=== PATIENT | female | born 1940 | race Caucasian/White ===

== ENCOUNTER 2021-09-19 13:43 | Emergency (ER) | payer OTHER, BC ==
--- OUTSIDE RECORDS SUMMARY | 2021-09-19 13:46 | XMS REPORT | Continuity of Care Document ---
:1940 Author Organization [facility] t Address [address] [place] [address] Care Team Providers Name Role Phone Ronen Dobbs MD Primary Care Physician RAYSHAWN Attending Clinician Unavailable LONI NICOLE Attending Clinician Unavailable RONEN DOBBS Attending Clinician Unavailable Artemio DSOUZA Attending Clinician Ronen Dobbs MD Attending Clinician MORRIS Attending Clinician Unavailable Zoltan HERNANDEZ Attending Clinician Unavailable JOSELYN Attending Clinician Unavailable RAYSHAWN Attending Clinician Unavailable EN Attending Clinician Unavailable MD Jose GATICA Attending Clinician Unavailable Naomi ELY Attending Clinician Monique-Durga Bocanegra Attending Clinician NAOMI Attending Clinician Unavailable ANSHUL MARY Attending Clinician Unavailable KELSIE Attending Clinician Unavailable VASCULAR Attending Clinician Unavailable ENID Attending Clinician Unavailable ALFREDO Attending Clinician Unavailable SE Attending Clinician Unavailable SE Attending Clinician Unavailable RUBIA BERGERON Attending Clinician Unavailable EN Admitting Clinician Unavailable MD Jose GATICA Admitting Clinician Unavailable Payers Payer Name Policy Type Policy Number Effective Date Expiration Date S ource [employer] MEDICARE [id number] 2020 ADVANTAGE HMO 00:00:00 CHETAN ADAMS 16 [id number] 2021 HMO-POS 00:00:00 ALISA Rich [id number] 2020 00:00:00 Problems Condition Condition Condition Status Onset Resolution Last Treating Co mments Source Name Details Category Date Date Treatment Clinician Date Primary Primary Disease Active Marie hypertensi hypertensi 4-18 Se ybold on on 00:00: 00 Hyperlipid Hyperlipid Disease Active K elsejanessa emia emia 4-18 Seybold 00:00: 00 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 4-18 Seyb old impairment impairment 00:00: - - 00 Unchanged Unchanged Syncope Syncope Disease Active UT and and 3-04 Health collapse collapse 00:00: 00 Essential Essential Disease Active UT hypertensi hypertensi 3-04 He alth on on 00:00: 00 Dyslipidem Dyslipidem Disease Active U T ia ia 3-04 Health 00:00: 00 PAOD PAOD Disease Active 2018-04 UT (periphera (periphera 1-19 He alth l arterial l arterial 00:00: occlusive occlusive 00 disease) disease) Chronic Chronic Disease Active UT venous venous 12-17 Health insufficie insufficie 00:00: ncy ncy 00 Pain of Pain of Disease Active UT right right 917 Health lower lower 00:00: extremity extremity 00 Varicose Varicose Disease Active UT veins of veins of 03 Health legs legs 00:00: 00 Osteochond Osteochond Disease Active U T everette everette 730 Health 00:00: 00 Subclavian Subclavian Disease Active U T artery artery 7-09 Health stenosis, stenosis, 00:00: right right 00 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 529 Health subclavian subclavian 00:00: artery artery 00 Acute Acute Disease Active UT occlusion occlusion 4-04 Heal th of artery of artery 00:00: of upper of upper 00 extremity extremity Acute Acute Disease Active UT bowel bowel 4-04 Health infarction infarction 00:00: 00 Shortness Shortness Disease Active UT of breath of breath 530 Heal th 00:00: 00 Lightheade Lightheade Disease Active U T dness dness 530 Health 00:00: 00 Abnormal Abnormal Disease Active UT findings findings 530 Health on on 00:00: diagnostic diagnostic 00 imaging of imaging of other other specified specified body body structures structures AAA AAA Disease Active UT (abdominal (abdominal 530 He alth aortic aortic 00:00: aneurysm) aneurysm) 00 Unstable Unstable Disease Active UT gait gait 07-02 Health 00:00: 00 Acute Acute Problem Active UT occlusion occlusion Phys ici of artery of artery ans of upper of upper extremity extremity Acute Acute Problem Active UT bowel bowel Physici infarction infarction an s Aberrant Aberrant Problem Active UT right right Physici subclavian subclavian an s artery artery Subclavian Subclavian Problem Active U T artery artery Physici stenosis, stenosis, ans right right Right Right Problem Active UT shoulder shoulder Physic i pain pain ans Osteochond Osteochond Problem Active U T everette everette Physici ans Pain of Pain of Problem Active UT right right Physici lower lower ans extremity extremity Chronic Chronic Problem Active UT venous venous Physici insufficie insufficie an s ncy ncy Carotid Carotid Problem Active UT artery artery Physici disease disease ans History of History of Problem Resolve UT asthma asthma d Physici ans Peripheral Peripheral Problem Active U T arterial arterial Physic i disease disease ans Essential Essential Problem Active UT hypertensi hypertensi Ph ysici on on ans Dyslipidem Dyslipidem Problem Active U T ia ia Physici ans Syncope Syncope Problem Active UT and and Physici collapse collapse ans History of History of Problem Resolve UT hypertensi hypertensi d Ph ysici on on ans Unstable Unstable Problem Active UT gait gait Physici ans AAA AAA Problem Active UT (abdominal (abdominal Ph ysici aortic aortic ans aneurysm) aneurysm) Abnormal Abnormal Problem Active UT carotid carotid Physici ultrasound ultrasound an s Lightheade Lightheade Problem Active U T dness dness Physici ans Shortness Shortness Problem Active UT of breath of breath Phys ici ans Allergies, Adverse Reactions, Alerts Allergy Allergy Status Severity Reaction(s) Onset Inactive Treating Comm ents Source Name Type Date Date Clinician Penicill Allergy Active UT ins to 10-26 Health substan 00:00: e 00 Penicill Propensi Active Itching Kelse y ins ty to 7-27 Seybold adverse 00:00: reaction 00 s Penicill Allergy Active UT ins to drug Physici (finding ans ) Family History Family Member Diagnosis Comments Start Date Stop Date Source Mother Family history of arthritis [facility] Father Family history of arthritis [facility] Social History Social Habit Start Date Stop Date Quantity Comments Source Exposure to Not sure [facility] of SARS-CoV-2 (event) Medici ne Tobacco use and 2020-04-26 2020-04-26 Never used [facility] of exposure 00:00:00 00:00:00 Medicine Sex [birth year] Marie Wolfe ybold 00:00:00 00:00:00 Smoking Status Start Date Stop Date Source Ex-smoker 2021-07-18 00:00:00 2021-07-18 00:00:00 Marie camarenabold Unknown if ever smoked [facility] Never smoker [facility] o f Medicine Medications Ordered Filled Start Stop Current Ordering Indication Dosage Frequency Signature Comments Components Source Medication Medication Date Date Medication? Clinician (SIG) Name Name Aspirin 81 Yes 81mg Take 81 mg K elsey MG oral 4-18 by mouth Seybold Tablet 13:37: daily Delayed 21 Response Atorvastati Yes 10mg Take 10 mg Marie n Calcium 4-18 by mouth Seybol d 10 MG oral 13:37: daily Tablet 21 Cholecalcif Yes 1U Take 1 Ashley ey wisam 25 MCG 4-18 unit by Seybo ld (1000 UT) 13:37: mouth oral 21 daily Capsule Cyanocobala Yes 1{capsu Take 1 K elsey min 5000 4-18 le} capsule by Seybo ld MCG oral 13:37: mouth Capsule 21 daily Gabapentin Yes 100mg Take 100 Ke lsey 100 MG oral 4-18 mg by Seybold Capsule 13:37: mouth once 21 as needed DONEPEZIL Yes [id number] 5mg Take 1 K elsey HYDROCHLORI 4-18 tablet (5 Sey bold DE 5 MG 00:00: mg total) oral Tablet 00 by mouth nightly Omeprazole Yes 20mg Take 20 mg K elsey 20 MG oral 4-02 by mouth Seybo ld Delayed 00:00: daily Release 00 Capsule Amlodipine 0 Yes 5mg Take 5 mg Ke lsey Besylate 5 2-05 by mouth Seybo ld MG oral 00:00: daily Tablet 00 Chromium 2020-0 Yes 1000ug QD Take 1,000 U T Picolinate 8-16 mcg by [facility] 1000 MCG 18:53: mouth 1 tablet 36 (one) time each day. Cyanocobala 2020-0 Yes 1{capsu QD Take 1 U T min (B-12) 8-16 le} capsule by [facility] lt 5000 MCG 18:53: mouth 1 capsule 36 (one) time each day. docusate 0 Yes 100mg QD Take 100 UT sodium 8-16 mg by Health (Colace) 18:53: mouth 1 100 MG 36 (one) time capsule each day. Fenoprofen 0 Yes 200mg QD Take 200 UT Calcium 200 8-16 mg by [facility] MG capsule 18:53: mouth 1 36 (one) time each day. gabapentin 0 Yes 100mg Take 100 UT (Neurontin) 8-16 mg by [facility] 100 MG 18:53: mouth 1 capsule 36 (one) time if needed. amLODIPine 0 Yes 5mg QD Take 5 mg UT (Norvasc) 5 8-16 by mouth 1 He alth MG tablet 18:53: (one) time 36 each day. aspirin 81 2020-0 Yes 81mg QD Take 81 mg U T MG EC 8-16 by mouth 1 Health tablet 18:53: (one) time 36 each day. atorvastati 2020-0 Yes 10mg QD Take 10 mg UT n (Lipitor) 8-16 by mouth 1 He alth 10 MG 18:53: (one) time tablet 36 each day. Cholecalcif 2020-0 Yes 1U QD Take 1 UT wisam 8-16 Units by Health (Vitamin 18:53: mouth 1 D-3) 25 MCG 36 (one) time (1000 UT) each day. capsule amLODIPine 2020-0 Yes 5mg QD Take 5 mg UT (Norvasc) 5 7-27 by mouth 1 He alth MG tablet 16:40: (one) time 39 each day. aspirin 81 2020-0 Yes 81mg QD Take 81 mg U T MG EC 7-27 by mouth 1 Health tablet 16:40: (one) time 39 each day. atorvastati 2020-0 Yes 10mg QD Take 10 mg UT n (Lipitor) 7-27 by mouth 1 He alth 10 MG 16:40: (one) time tablet 39 each day. Cholecalcif 202-0 Yes 1U QD Take 1 UT wisam 7-27 Units by Health (Vitamin 16:40: mouth 1 D-3) 25 MCG 39 (one) time (1000 UT) each day. capsule Chromium 2020-0 Yes 1000ug QD Take 1,000 U T Picolinate 7-27 mcg by [facility] 1000 MCG 16:40: mouth 1 tablet 39 (one) time each day. Cyanocobala 202-0 Yes 1{capsu QD Take 1 U T min (B-12) 7-27 le} capsule by [facility] 5000 MCG 16:40: mouth 1 capsule 39 (one) time each day. docusate 2020-0 Yes 100mg QD Take 100 UT sodium 7-27 mg by Health (Colace) 16:40: mouth 1 100 MG 39 (one) time capsule each day. Fenoprofen 2020-0 Yes 200mg QD Take 200 UT Calcium 200 7-27 mg by Health MG capsule 16:40: mouth 1 39 (one) time each day. gabapentin 2020-0 Yes 100mg Take 100 UT (Neurontin) 7-27 mg by Health 100 MG 16:40: mouth 1 capsule 39 (one) time if needed. Meloxicam 2020-0 Yes 7.5mg Q.5D Take 7.5 Roger sey 7.5 MG oral 4-25 mg by Seybold Tablet 00:00: mouth as 00 needed in the morning and 7.5 mg as needed in the evening. triamcinolo 2020- No [id number] B aylor ne 05-07 College acetonide 16:00: 15:46 of (KENALOG-40 00 :00 Medicin ) 40 mg/mL e 80 mg, lidocaine 1% (10 mg/mL) 4 mL iohexol 2020- No [id number] 3mL [employer] (OMNIPAQUE) 05-07 College 300 MG/ML 16:00: 15:46 of injection 3 00 :00 Medicin mL e iohexol 2020- No [id number] 3mL 3 mL, [employer] (OMNIPAQUE) 05-07- Intra-cresencio C [facility]lege 300 MG/ML 16:00: 15:46 darien, of injection 3 00 :00 ONCE, 1 Medic in mL dose, Fri e 05/07/20 at 1000 triamcinolo 2020- No [id number] Intra-cresencio [facility] ne 05-07 darien [employer] acetonide 16:00: 15:46 ONCE, 1 of (KENALOG-40 00 :00 dose, Sun Med icin ) 40 mg/mL 05/07/20 at e 80 mg, 1000 lidocaine 1% (10 mg/mL) 4 mL celecoxib Yes 200mg QD Take 200 UT (CeleBREX) 4-02 mg by Health 200 MG 00:00: mouth 1 capsule 00 (one) time each day. Omeprazole Yes 20mg QD Take 20 mg U T 20 MG 4-02 by mouth 1 Health tablet 00:00: (one) time delayed-rel 00 each day. ease celecoxib Yes 200mg QD Take 200 UT (CeleBREX) 4-02 mg by Health 200 MG 00:00: mouth 1 capsule 00 (one) time each day. Omeprazole Yes 20mg QD Take 20 mg U T 20 MG 4-02 by mouth 1 Health tablet 00:00: (one) time delayed-rel 00 each day. ease Omeprazole Omeprazole Yes qd U T 20 MG Oral 20 MG Oral 4-02 Phy sici Tablet Tablet 00:00: ans Delayed Delayed 00 Release Release Celecoxib Celecoxib Yes Q0.5D TAKE 1 UT 200 MG Oral 200 MG Oral 4-02 CAPSULE Physici Capsule Capsule 00:00: TWICE ans 00 DAILY NEEDED. No known No [facility] medications [employer] Aspirin 81 Aspirin 81 Yes TAKE 1 U T MG Oral MG Oral TABLET BY Phys ici Tablet Tablet MOUTH ans Delayed Delayed EVERY DAY Release Release Atorvastati Atorvastati Yes TAKE 1 UT n Calcium n Calcium TABLET AT Physici 10 MG Oral 10 MG Oral BEDTIME. ans Tablet Tablet amLODIPine amLODIPine Yes QD TAKE 1 U T Besylate 5 Besylate 5 TABLET P hysici MG Oral MG Oral DAILY ans Tablet Tablet B-12 CAPS B-12 CAPS Yes UT Physici ans Chromium Chromium Yes UT Picolate Picolate Physici TABS TABS ans Colace 100 Colace 100 Yes UT MG Oral MG Oral Physici Capsule Capsule ans Vitamin D-3 Vitamin D-3 Yes U T CAPS CAPS Physici ans Fenoprofen Fenoprofen Yes 1 QD TAKE 1 U T Calcium 200 Calcium 200 CAPSULE Physici MG Oral MG Oral DAILY ans Capsule Capsule Gabapentin Gabapentin Yes TAKE UT 100 MG TABS 100 MG TABS TABLET Physici PRN ans Immunizations Ordered Immunization Filled Immunization Date Status Commen ts Source Name Name Covid-19 Vaccine 2020-07-12 Completed Mariejim camarenamary Moderna (Spikevax), 00:00:00 Mrna-lnp, Paul Protein, Pf Covid-19 Vaccine 2020-06-14 Completed Marie Shonda camarenamary Moderna (Spikevax), 00:00:00 Mrna-lnp, Paul Protein, Pf Vital Signs Vital Name Observation Time Observation Value Comments Source Systolic blood 2021-07-18 138 mm[Hg] Marie Wolfejorge d pressure 19:34:00 Diastolic blood 2021-07-18 70 mm[Hg] Marie Wolfeamilcar ld pressure 19:34:00 Heart rate 2021-07-18 55 /min [facility] 18:19:00 Body temperature 2021-07-18 36.06 Bindu Marie Kaye [facility] 18:19:00 Respiratory rate 2021-07-18 16 /min Marie Wolfe old 18:19:00 Body height 2021-07-18 157.5 cm Marie ernesto 18:19:00 Body weight 2021-07-18 54.885 kg [facility] 18:19:00 BMI 2021-07-18 22.13 kg/m2 Marie [facility] 18:19:00 Diastolic blood 2020-04-26 68 mm[Hg] [facility] ge pressure 17:17:00 of Medicine Heart rate 2020-04-26 76 /min [facility] 17:17:00 of Medicine Body temperature 2020-04-26 36.5 Bindu [facility] Jessie ege 17:17:00 of Medicine Body height 2020-04-26 162.6 cm [facility] 17:17:00 of Medicine Body weight 2020-04-26 56.7 kg [facility] 17:17:00 of Medicine BMI 2020-04-26 21.46 kg/m2 [facility] College 17:17:00 of Medicine Systolic blood 2020-04-26 154 mm[Hg] [facility] Colleg e pressure 17:17:00 of Medicine Systolic blood 2020-06-03 132 mm[Hg] [place] [facility] [place] Phys[place] ns pressure 15:40:00 Position: Sitting Diastolic blood 2020-06-03 60 mm[Hg] Location: [facility] Physici ans pressure 15:40:00 Position: Sitting Body height 2020-06-03 64 [in_us] [facility] 15:40:00 Weight 2020-06-03 120 [lb_av] [facility] 15:40:00 Body mass index 2020-06-03 20.6 kg/m2 [facility] (BMI) [Ratio] 15:40:00 Heart Rate 2020-06-03 73 /min [facility] 15:40:00 BP Systolic 2017-08-29 126 mm[Hg] Position: [facility] 09:58:00 Sitting BP Diastolic 2017-08-29 60 mm[Hg] Position: [facility] 09:58:00 Sitting Height 2017-08-29 64 [in_us] [facility] 09:58:00 Weight 2017-08-29 124 [lb_av] [facility] 09:58:00 Body Mass Index 2017-08-29 21.28 kg/m2 [facility] Calculated 09:58:00 Heart Rate 2017-08-29 77 /min Quality: Normal [facility] 09:58:00 BP Systolic 2017-07-02 124 mm[Hg] [facility] 10:31:00 BP Diastolic 2017-07-02 68 mm[Hg] [facility] 10:31:00 Height 2017-07-02 64 [in_us] [facility] 10:31:00 Weight 2017-07-02 127 [lb_av] [facility] 10:31:00 Body Mass Index 2017-07-02 21.8 kg/m2 [facility] Calculated 10:31:00 Heart Rate 2017-07-02 76 /min [facility] 10:31:00 Procedures Procedure Date / Time Performed Performing Clinician Lina e CVRAD - Bilateral Carotid 2019-01-27 00:00:00 [facility] Duplex - [id number] CVRAD - RAUDEL - [id number] 2019-01-27 00:00:00 [facility] CVRAD - Lower Venous Comp - 2018-12-03 00:00:00 [facility] [id number] [U] XRAY SHOULDER MIN 2 VWS 2018-10-29 00:00:00 [facility] RIGHT [id number] CT Shoulder wo contrast w/3D 2018-10-29 00:00:00 [facility] [id number] CV[facility] - Bilateral Lower 2018-10-21 00:00:00 [facility] Arterial Duplex - [id number] CVRAD - RAUDEL - [id number] 2018-10-21 00:00:00 [facility] CVRAD - RAUDEL - [id number] 2018-08-20 00:00:00 [facility] CVRAD - Right Lower Arterial 2018-08-20 00:00:00 [facility] Duplex Uni/Lmt - [id number] CTA Neck [id number] 2017-07-02 00:00:00 [facility] US Echocardiogram 2D w/m 2017-07-02 00:00:00 [facility] mode [id number] [N] Nuclear Test-Adenosine 2017-07-02 00:00:00 [facility] Stress Perfusion History of Hysterectomy [facility] Plan of Care Planned Activity Planned Date Details Comments Source Future Scheduled COVID-19 Vaccine [facility] Test Evaluation [code = of Medici ne COVID-19 Vaccine Evaluation] Future Scheduled TETANUS SHOT (ADULT) [facility] Test [code = TETANUS SHOT of Medi cine (ADULT)] Future Scheduled ZOSTER VACCINE ([address] [facility] Test 2) [code = ZOSTER of Medicin e VACCINE (1 of 2)] Future Scheduled FALL SCREEN [code = [facility] [place] Test FALL SCREEN] of Medicine Future Scheduled OSTEOPOROSIS [facility] Jessie ege Test SCREENING [code = of Medicin e OSTEOPOROSIS SCREENING] Future Scheduled PNEUMOVAX >=65 [facility] Co llege Test (PPSV23) [code = of Medicine PNEUMOVAX >=65 (PPSV23)] Future Scheduled FLU VACCINE > 6 [facility] C ollege Test MONTHS [code = FLU of Medici ne VACCINE > 6 MONTHS] Future Scheduled MEDICARE IPPE [facility] Col lege Test (WELCOME TO of Medicine MEDICARE) [code = MEDICARE IPPE (WELCOME TO MEDICARE)] Future Scheduled COVID-19 Vaccine [facility] Test Evaluation [code = of Medici ne COVID-19 Vaccine Evaluation] Future Scheduled TETANUS SHOT (ADULT) [facility] Test [code = TETANUS SHOT of Medi cine (ADULT)] Future Scheduled ZOSTER VACCINE (1 of [employer] Test 2) [code = ZOSTER of Medicin e VACCINE (1 of 2)] Future Scheduled FALL SCREEN [code = [employer] [facility] FALL SCREEN] of Medicine Future Scheduled OSTEOPOROSIS [facility] Jessie ege Test SCREENING [code = of Medicin e OSTEOPOROSIS SCREENING] Future Scheduled PNEUMOVAX >=65 [facility] Co llege Test (PPSV23) [code = of Medicine PNEUMOVAX >=65 (PPSV23)] Future Scheduled FLU VACCINE > 6 [facility] C ollege Test MONTHS [code = FLU of Medici ne VACCINE > 6 MONTHS] Future Scheduled MEDICARE IPPE [facility] Col lege Test (WELCOME TO of Medicine MEDICARE) [code = MEDICARE IPPE (WELCOME TO MEDICARE)] Future Scheduled XR KNEE BILATERAL 1 Occurrences [employer] Test AP,LAT,OBLIQUE [code starting 04/26/2020 of Medicine = 48551-1] until 11/24/2020 Future Scheduled XR SHOULDER RIGHT 1 Occurrences [employer] Test (COMPLETE) [code = starting 04/26/2020 of Medicine 53304] until 11/24/2020 Encounters Start End Encounter Admission Attending Care Care Encounter Source Date/Time Date/Time Type Type Clinicians Facility Department ID 2020-11-09 [facility] [id number] [facility] 11:47:35 [facility] 2020-10-26 [facility] [id number] [facility] 02:22:23 [facility] 2020-10-25 [facility] [id number] [facility] 12:44:51 [facility] 2019-08-22 Outpatient GIDEON NICOLE MHSE [id number] 12:37:[address] [facility] 2019-04-29 Outpatient MHSE MHSE [id number] MH 08:21:[address] [facility] 2018-07-23 Outpatient MHSE MHSE [id number] MH 10:39:[address] [facility] [address] [facility] 2018-06-06 Inpatient E MHSE MED [id number] MH 16:29:[address] [facility] [address] [facility] 2021-10-07 2021-10-07 Outpatient MARIE DOBBS [id number] Marie 13:30:00 13:30:00 ONEAL santamaria 2021-09-09 2021-09-09 Office Ritesh Ulloa [id number] Marie 14:45:00 15:15:00 Visit Luigi Pennington [id number] Se ybold [id number] 2021-09-09 2021-09-09 Outpatient MARIE DOBBS [id number] Marie 00:00:00 00:00:00 ONEAL Seybol d 2021-08-15 2021-08-15 Outpatient MARIE DOBBS [id number] Marie 00:00:00 00:00:00 ONEAL Seybol d 2021-07-27 2021-07-27 Outpatient MARIE DOBBS [id number] Marie 00:00:00 00:00:00 ONEAL Seybol d 2021-07-27 2021-07-27 Outpatient MARIE DOBBS [id number] Marie 00:00:00 00:00:00 ONEAL Seybol d 2021-07-18 2021-07-18 Office Ritesh Dobbs [id number] Marie 13:30:00 14:15:00 Visit Oneal Pennington [id number] Se korey Luis Enriqueyi [id number] 2021-07-18 2021-07-18 Outpatient MARIE DOBBS [id number] Marie 13:30:00 13:30:00 ONEAL Seybol d 2021-02-01 2021-02-01 Outpatient MARIE CACERES [id number] Marie 09:00:00 09:00:00 YAIR Seybol d 2021-02-01 2021-02-01 Outpatient MARIE CACERES [id number] Marie 09:00:00 09:00:00 YAIR Seybol d 2020-11-15 2020-11-15 Abstract Marely Charlton [facility] 1.2.[id number] 00:00:00 00:00:00 Marely Charlton [facility] [id number] [facility] [id number] 2020-10-26 2020-10-26 Abstract Marely Charlton [facility] 1.2.[id number] 00:00:00 00:00:00 Marely Charlton [facility] [id number] Health [place] [id number] 2020-06-09 2020-06-09 Outpatient BURT ALVESSE PUL [id number] 10:36:00 23:59:00 [facility] 2020-06-03 2020-06-03 Appointmen DINA TABARES [facility] [id number] 15:30:00 15:30:00 t; SAV TABARES, Advanced Ph mateo ANG M.D. Heart hiwot Rico [facility] 2020-05-20 2020-05-22 Inpatient EN [facility] [id number] [place] 00:00:00 00:00:00 NOAH [address] 2020-05-07 2020-05-07 Office Nathan Salgado [id number] [facility] 09:19:38 09:39:38 Visit C-Arm, Pmr Siemens AMBULATOR 350.1.13. 21 College Y [id number] of [id number] [facility] sammi 800 e 2020-05-04 2020-05-04 Appointmen DINA TABARES [facility] [id number] 11:15:00 11:15:00 t; SAV TABARES Phy sici BENNET, M.D. ans M.D. 2020-04-26 2020-04-26 Office Nathan Salgado [id number] [facility] 10:31:31 11:11:31 Visit AMBULATOR 350.1.13.21 College Y 0.2.7.2.686 of [id number] [facility] sammi 800 e 2020-04-26 2020-04-26 [facility] [id number] SLE 00:00:00 00:00:00 2020-04-26 2020-04-26 Outpatient NATHAN SALGADO [facility] [id number] SLE 00:00:00 00:00:00 2020-04-26 2020-04-26 Outpatient NATHAN SALGADO [facility] [id number] SLE 00:00:00 00:00:00 2020-04-01 2020-04-01 Outpatient TUYET MARY MHSE MED [id number] MH 09:31:00 23:59:[address] [facility] 2019-05-21 2019-05-21 Outpatient MHSE PUL [id number] MH 14:14:00 14:14:[address] [facility] 2019-04-14 2019-04-14 Outpatient MHSE MHSE [id number] MH 15:22:00 15:22:[address] [facility] 2019-04-10 2019-04-10 Outpatient MHSE MHSE [id number] MH 10:30:00 10:30:[address] [facility] 2019-02-18 2019-02-18 AppointDINA [facility] [id number] [place] 08:00:00 08:00:00 t; JAY IGLESIAS [facility] & Piotr THOMPSON M.D. Vascular ans Jacky [facility] II - [facility] 2019-02-08 2019-02-08 Outpatient MHSE MED [id number] MH 16:13:00 [facility]:13:[address] [facility] 2019-01-27 2019-01-27 Appointmen VASCULAR, [facility] UTP [id number] UT 13:30:00 13:30:00 t; Physic i VASCULAR, [facility] 2019-01-27 2019-01-27 Appointumer VASCULAR, [facility] Thoracic [id number] [place] 13:00:00 13:00:00 t; Surgery - Phys ici VASCULAR, [facility] 2018-12-17 2018-12-17 Anh IGLESIAS [facility] Thoracic [id number] [place] 08:45:00 08:45:00 t; JAY IGLESIAS Surgery - P hysici GORDON, M.D. [facility] [place] 2018-12-03 2018-12-03 Anh BUSH, [facility] Thoracic [id number] [place] 08:00:00 08:00:00 t; Surgery - Phys ici VASCULAR, [facility] 2018-11-12 2018-11-12 DINA Beaulieu Thoracic [id number] [place] 09:00:00 09:00:00 t; JAY IGLESIAS Surgery - P randa THOMPSON M.D. [facility] hiwot [place]Zen[place] 2018-10-29 2018-10-29 Appointmen ENID, [facility] Orthopedics [id number] [place] 09:30:00 09:30:00 t; Gena SMALLWOOD. [facility] Physici EN[place], [facility] Jacky SMALLWOOD 2018-10-21 2018-10-21 Appointmen VASCULAR, [facility] UTP [id number] [place] 10:00:00 10:00:00 t; Physic i VASCULAR, [facility] 2018-10-21 2018-10-21 Appointmen VASCULAR, [facility] Thoracic [id number] [place] 09:00:00 09:00:00 t; Surgery - Phys ici VASCULAR, [facility] 2018-10-08 2018-10-08 Appointumer IGLESIAS, [facility] Thoracic [id number] [place] 09:45:00 09:45:00 t; JAY IGLESIAS, Surgery - P randa THOMPSON M.D. [facility]ot [place]Zen[place] 2018-09-23 2018-09-23 Outpatient [facility] [id number] 05:51:00 05:51:00 [facility] 2018-08-28 2018-08-28 Appointumer IGLESIAS [facility] Cardiothora [id number] [place] 07:45:00 07:45:00 t; JAY IGLESIAS cic and Phy sici GORDON, M.D. Vascular ans M.D. Surgery at [facility] 2018-08-20 2018-08-20 Appointmen VASCULAR, [facility] UTP [id number] [place] 09:30:00 09:30:00 t; SE Physic i VASCULAR, ans SE 2018-08-20 2018-08-20 Appointmen VASCULAR, [facility] Cardiothora [id number] [place] 09:00:00 09:00:00 t; SE cic and Physic i VASCULAR, Vascular ans Surgery at [facility] 2018-08-20 2018-08-20 Anh IGLESIAS [facility] Cardiothora [id number] [place] 08:00:00 08:00:00 t; JAY IGLESIAS cic and Phy sici GORDON, M.D. Vascular ans M.D. Surgery at [facility] 2018-07-09 2018-07-09 Anh IGLESIAS [facility] Cardiothora [id number] [place] 08:00:00 08:00:00 t; JAY IGLESIAS cic and Phy sici GORDON, M.D. Vascular [place]wot [place] Surgery at [facility] 2018-07-05 2018-07-05 Outpatient [facility] MED [id number] 15:08:00 15:08:[address] [facility] 2017-12-27 2017-12-27 Anh FUENTES, UTP Cardiology [id number] [place] 09:30:00 09:30:00 t; PRESTON at Physic i ALFREDO [place] [facility] PRESTON mi M.D. 2017-08-29 2017-08-29 Anh JENKINSENE, UTP Cardiology [id number] [place] 09:40:00 09:40:00 t; PRESTON [facility] Physic i ALFREDO [place] [facility] PRESTON mi M.D. 2017-08-01 2017-08-01 Anh FUENTES, UTP Cardiology [id number] [place] 13:30:00 13:30:00 t; PRESTON at Physic i ALFREDO [place] [facility] PRESTON mi M.D. 2017-07-24 2017-07-24 Appointmen SE, NUCLEAR UTP UTP [id number] [place] 09:45:00 09:45:00 t; SE, Physic i NUCLEAR ans 2017-07-17 2017-07-17 Appointmen SE, ECHO UTP UTP [id number] [place] 11:45:00 11:45:00 t; SE, Physic i ECHO ans 2017-07-02 2017-07-02 Appointmen ALICEENE, UTP UTP [id number] [place] 10:00:00 10:00:00 t; Louis JOHNSTON i, M.D., ANGELO, M.D. 2017-04-19 2017-04-19 Appointmen ISRANG UTP UTP [id number] [place] 09:15:00 09:15:00 t; Piotr SANCHEZ ANDREW, ans ANDREW, M.D. M.D. 2017-03-08 2017-03-08 Appointmen RIDGEANGELAJACK UTP UTP [id number] [place] 08:30:00 08:30:00 t; Piotr SANCHEZ ANDREW, ans ANDREW, M.D. M.D. 2016-12-07 2016-12-07 [facility] RIDGE-JACK UTP UTP [id number] [place] 08:15:00 08:15:00 t; Piotr SANCHEZ ANDREW, ans ANDREW, M.D. M.D. 2016-11-09 2016-11-09 [facility] LI-JACK UTP UTP [id number] [place] 08:30:00 08:30:00 t; Piotr SANCHEZ ANDREW, ans ANDREW, M.D. M.D. 2016-11-02 2016-11-02 [facility] LI-JACK UTP UTP [id number] [place] 08:30:00 08:30:00 t; Piotr SANCHEZ ANDREW, ans ANDREW, M.D. M.D. 2016-10-26 2016-10-26 [facility] RIDGE-JACK UTP UTP [id number] [place] 08:30:00 08:30:00 t; Piotr SANCHEZ ANDREW, ans ANDREW, M.D. M.D. 2016-09-07 2016-09-07 [facility] ISRANG UTP UTP [id number] UT 11:45:00 11:45:00 t; Piotr SANCHEZ ANDREW, ans ANDREW, M.D. M.D. 2016-08-17 2016-08-17 [facility] RIDGE-JACK UTP UTP [id number] [place] 08:45:00 08:45:00 t; Piotr SANCHEZ ANDREW, ans ANDREW, M.D. M.D. Results Test Description Test Time Test Comments Results Result Comments Source SARS-CoV-2 (COVID-19) RNA [Presence] in Respiratory sp ecimen by 2020-05-20 12:02:19 DIETER with probe detection Test Item Value Reference Range Interpretation Comme nts SARS-CoV-2 (COVID-19) RNA [Presence] in Respiratory Not detected No t-Detected specimen by DIETER with probe detection (test code = 64338-3) RAD, KNEE, 3 VIEWS, [id number] 13:17:00Reason for Exam:->BILATERAL PRIMARY [facility] 1940 Sex: FFINAL REPORT Exam: Right and left knee three views each History: Knee pain Comparison: None. Findings: No fracture or malalignment. Narrowing of the lateral compartment bilaterally with osteophyte formation narrowing. Chondrocalcinosis. Vascular calcifications. Bone demineralization. Impression: No acute osseous abnormality Moderate lateral tibiofemoral compartment osteoart hrosis Signed: Brenden Whatley [facility] Verified Date/Time: 04/26/2020 13:17:40 Reading Location: [facility] Reading Room [address] [place] [address] RAD, KNEE, 3 VIEWS, RIGHT 2020-04-26 13:17:00Reason for Exam:->BILATERAL PRIMARY OSTEOATHRITIS OF KNEE [facility] 1940 Sex: FFINAL REPORT Exam: Right and left knee three views each History: Knee pain Comparison: None. Findings: No fracture or malalignment. Narrowing of the lateral compartment bilaterally with osteophyte formation narrowing. Chondrocalcinosis. Vascular calcifications. Bone demineralization. Impression: No acute osseous abnormality Moderate lateral tibiofemoral compartment osteoart hrosis Signed: Brenden Whatley Verified Date/Time: 04/26/2020 13:17:40 Reading Location: [facility] Reading Room [address] [place] [address] RAD, SHOULDER, COMPLETE (MIN 2 VIEWS), [id number] 13:13:00Reason for Exam:->CH[facility]IC [facility] : 1940 Sex: FFINAL REPORT Exam: Right shoulder two views History: Shoulder pain Comparison: None. Findings: No acute fracture. Bone demineralization. Advanced glenohumeral joint degenerative arthrosis with large osteophyte formation. Narrowing of the acromiohumeral interval. Impression: No acute osseous abnormality Advanced glenohumeral joint degenerative arthrosis Signed: Brenden Whatley Verified Date/Time: 04/26/2020 13:13:50 Reading Location: [facility] Reading Room [address] [place] [address] [U] XRAY SHOULDER MIN 2 VWS RIGHT [id number] 09:45:00Images acquired, not reported on this accession number.UT PhysiciansXRAY Chest 2 views [id number] 12:54:00 Test Item Value Reference Range Interpretation Comments Chest 2 views (test Cancel Reason: Not code = Chest 2 views) Indicated CT PhysiciansXRAY Chest 2 views [id number] 10:46:00 Test Item Value Reference Range Interpretation Comments Chest 2 views (test code = Cancel Reason: Chest 2 views) CT PhysiciansCTA Neck [id number] 10:06:00Clinical Indication: - I77.9 Disorder of arteries and arterioles,unspecifiedComparison: NoneTECHNIQUE: Sequential trans-axial images of the neck were obtained with amulti-detector helical CT after iodinated contrast administration. Coronal andsagittal reconstructions and were obtained, along with 3D post-processingmaximum intensity projection imaging for exam interpretation.CONTRAST: 100 cc of IV O mnipaque contrast material was used for the exam.CT Radiation Dose DLP 299 mGy- cmFINDINGS:CTA NECK:VASCULAR EVALUATION: There is moderate atherosclerotic calcification of theaortic arch. There is a retroesophageal apparent right subclavian artery.The right common carotid artery is widely patent. The right carotid bulb regionis unremarkable. The internal and external carotid arteries on the right arewidely patent. The right cervical internal carotid artery is widely patent.The left common carotid artery is widely patent. The left carotid bulb regionis unremarkable. There is 20% stenosis of the proximal left internal carotidartery. The external carotid artery is widely patent.. The left cervicalinternal carotid artery is widely patent.The right vertebral artery arises from the right common carotid artery.The source images show no evidence of dissections.At the level of C3 and C4, the common carotid arteries and internal carotidarteries are retropharyngeal.If there is further concern, recommend conventional angiography for completeassessment.Any reported ICA stenosis directly references the distal internal carotiddiameter as the denominator for stenosis measurement.NON-VASCULAR STRUCTURES: The nonvascular soft tissues of the neck areunremarkable. There are changes of centrilobular emphysema in the bilaterallung apices. There is diffuse spondylosis of the cervical spine mostprominently at C5-C7.IMPRESSION:1. 20% stenosis of the proximal left internal carotid artery.2. No significant stenosis is otherwise noted.3. Aberrant right subclavian artery.4. Retropharyngeal common carotid and internal carotid arteries at the level ofC3 and C4.5. Degenerative changes of the cervical spine most prominently at C5-C7 withdisc space narrowing and facet arthropathy and broad-based disc bulges withdisc osteophyte complexes.SL: [id number] by: Kiko García MDDictated Date/time: 07/17/17 14:32Electronica lly Signed by: Kiko García MD 07/17/1813:42FINAL REPORTUT Physicians
[2021-09-19] MEDS ORDERED: ONDANSETRON 4 MG/2 ML VIAL ONE (14:40)
[2021-09-19] MEDS ORDERED: MORPHINE 4 MG/ML SYR ONE (14:40)
--- NOTE | 2021-09-19 15:30 | RAD REPORT ---
EXAM DESCRIPTION: CT - Pelvis Wo Cont - 09/19/2021 3:18 pm CLINICAL HISTORY: Right hip pain s/p fall COMPARISON: Spine Lumbar Wo Con dated 09/19/2021 FINDINGS: Nondisplaced right sacral reena are fracture. Osteopenia. Comminuted right obturator ring fr acture with involvement at the right superior pubic ramus and pubic symphysis as well as the right in ferior pubic ramus. No hip fracture is identified. There is associated hematoma within the soft tissu es. Peripheral vascular calcifications. Prevesical hematoma noted in the right lower quadrant. Partia lly imaged abdominal aortic aneurysm measuring 3 cm. Atherosclerosis. IMPRESSION: Comminuted right obturator ring fracture. Nondisplaced right sacral reena are fracture No hip fracture or dislocation.
--- NOTE | 2021-09-19 15:31 | RAD REPORT ---
EXAM DESCRIPTION: CT - Spine Lumbar Wo Con - 09/19/2021 3:18 pm CLINICAL HISTORY: Radiculopathy. Low back pain, trauma COMPARISON: No comparisons TECHNIQUE: Axial noncontrast CT imaging of the lumbar spine was performed with coronal and sagittal re-formatted images. All CT scans are performed using dose optimization technique as appropriate and may include automated exposure control or mA/KV adjustment according to patient size. FINDINGS: Remote appearing L1 and L2 compression fractures with endplate irregularity and mild bony retropulsion. Osteopenia. No acute fracture of the lumbar spine is identified. Pulmonary fibrotic kylee nges in the lung bases. Coronary artery calcifications. Abdominal aortic aneurysm measuring 3 cm. Duo denal diverticulum. Right sacral reena are fracture. Paraspinal tissues are normal in thickness. No paraspinal abscess or hematoma seen. Intervertebral disc disease assessment is inherently limited by CT. Within these limitations, no high -grade canal stenosis suspected. IMPRESSION: Remote L1 and L2 compression fractures. No acute fracture of the lumbar spine is identif ied.
--- NOTE | 2021-09-19 15:54 | RAD REPORT ---
EXAM DESCRIPTION: RAD - Wrist Right 3 View - 09/19/2021 3:25 pm CLINICAL HISTORY: PAIN COMPARISON: Wrist Left 3 View dated 09/19/2021 FINDINGS/IMPRESSION: Distal radial and ulnar impaction fractures involving the metaphysis. Slight do rsal tilt. Advanced degenerative changes at the base of the thumb and at the carpus. Osteopenia.
--- NOTE | 2021-09-19 15:55 | RAD REPORT ---
EXAM DESCRIPTION: RAD - Wrist Left 3 View - 09/19/2021 3:25 pm CLINICAL HISTORY: PAIN COMPARISON: No comparisons FINDINGS/IMPRESSION: Distal radial metaphyseal impaction fracture and question ulnar styloid avulsio n fracture. Slight dorsal tilt of the distal radius. Probable intra-articular extension of the radius fracture. Advanced degenerative changes are present the base of the thumb. Osteopenia.
[2021-09-19] MEDS ORDERED: NA CHLORIDE 0.9% 1,000 ML ONE (16:02)
[2021-09-19 17:12] LABS: Absolute Lymphocytes (CBC) 0.5 K/uL (0.7-4.9); Hematocrit 37.2 % (36.0-45.0); Lymphocytes % 5.1 % (15.3-44.8); MPV 8.6 fL (7.6-11.3); RBC Red Blood Cell Count 3.79 M/uL (3.86-4.86)
--- NOTE | 2021-09-19 17:24 | EDPHYS ---
Physician Documentation [facility] Name: Karla Light Age: 81 yrs Sex: Female : 1940 Arrival Date: 09/19/2021 Time: 13:49 Bed 13 Private MD: BENY Physician Darek Oquendo HPI: 09/19 14:15 This 81 yrs old Female presents to ER via EMS with complaints of right hip pain and pm1 bilateral wrist pain. 14:15 Details of fall: The patient fell from an upright position, while standing. Onset: The pm1 symptoms/episode began/occurred today. Associated injuries: The patient sustained injury to the low back, pain, right hip, painful injury, right wrist, painful injury, left wrist, painful injury. Severity of symptoms: in the emergency department the symptoms are unchanged. The patient has not experienced similar symptoms in the past. The patient has not recently seen a physician. Patient was walking into the house with her dog and she got tangled up by the leash as the dog ran around her. Patient fell backwards on her buttocks and with her hands out behind her. Patient complaining of tailbone pain, right hip pain, low back pain, and bilateral wrist pain. Negative for headache, head injury, neck pain, LOC. Historical: - Allergies: 14:02 PENICILLINS; ww - PMHx: 14:02 Hypertensive disorder; Arthritis; ww - PSHx: 14:02 Total abdominal hysterectomy; Tonsillectomy; ww - Immunization history:: Adult Immunizations up to date. - Social history:: Smoking status: Patient/guardian denies using tobacco, the patient reports quitting approximately 30 years ago. ROS: 14:15 Constitutional: Negative for fever, chills, and weight loss, Cardiovascular: Negative pm1 for chest pain, palpitations, and edema, Respiratory: Negative for shortness of breath, cough, wheezing, and pleuritic chest pain, Abdomen/GI: Negative for abdominal pain, nausea, vomiting, diarrhea, and constipation. 14:15 Skin: Negative for injury, rash, and discoloration. 14:15 Neuro: Negative for headache, weakness, numbness, tingling, and seizure. 14:15 Back: Positive for Pain to lower back and tailbone. 14:15 MS/extremity: Positive for Right hip pain, bilateral wrist pain, left wrist swelling, Negative for deformity. 14:15 All other systems are negative. Exam: 14:15 Constitutional: This is a well developed, well nourished patient who is awake, alert, pm1 and in no acute distress. Head/Face: Normocephalic, atraumatic. 14:15 Skin: Warm, dry with normal turgor. Normal color with no rashes, no lesions, and no evidence of cellulitis. 14:15 Eyes: Exam is negative for acute changes, Periorbital structures: no acute changes, Pupils: no acute changes, Extraocular movements: no acute changes. 14:15 ENT: Mouth: is normal, no acute changes, Lips: normal, moist, Oral mucosa: normal, pink and intact, moist. 14:15 Neck: Exam negative for acute changes, External neck: no acute changes, tenderness, is not appreciated, C-spine: vertebral tenderness, is not appreciated, ROM/movement: no acute changes. 14:15 Cardiovascular: Exam negative for acute changes, Rate: normal, Rhythm: regular, Pulses: no pulse deficits are appreciated. 14:15 Respiratory: Exam negative for acute changes, respiratory distress, shortness of breath. 14:15 Abdomen/GI: Inspection: abdomen appears normal, Palpation: abdomen is soft and non-tender, in all quadrants. 14:15 Back: vertebral tenderness, is appreciated at lumbar spine. 14:15 Musculoskeletal/extremity: Extremities: grossly normal except: noted in the right groin: pain, tenderness, There is no evidence of decreased ROM, deformity, Circulation is intact in all extremities. 14:15 Neuro: Exam negative for acute changes, Orientation: is normal, Mentation: is normal, Motor: is normal, moves all fours. Vital Signs: 14:00 BP 96 / 64; Pulse 73; Resp 18; Temp 97.0; Pulse Ox 93% on R/A; Weight 50.8 kg; Height 5 ww ft. 4 in. (162.56 cm); Pain 8/10; 14:30 BP 110 / 75; Pulse 72; Resp 18; Pulse Ox 93% on R/A; ww 15:55 BP 83 / 54; Pulse 66; Resp 18; Pulse Ox 96% on 3 lpm NC; ww 16:00 BP 97 / 65; Pulse 69; Resp 18; Pulse Ox 98% on 3 lpm NC; ww 16:30 BP 62 / 54; Pulse 70; Resp 18; Pulse Ox 94% on 3 lpm NC; ww 16:40 BP 120 / 62; Pulse 69; Resp 18; Pulse Ox 94% on 2 lpm NC; ww 17:12 BP 127 / 53; Pulse 69; Resp 16; Pulse Ox 94% on 1 lpm NC; ww 14:00 Body Mass Index 19.22 (50.80 kg, 162.56 cm) ww 16:40 changed blood pressure cuff to left arm. ww MDM: 14:03 Patient medically screened. pm1 14:54 Data reviewed: vital signs. pm1 17:16 Physician consultation: MD Callahan was contacted at 17:16, regarding consult, patient's pm1 condition, and will see patient in ED. 17:16 ED course: Dr. Callahan does not want CT with IV contrast as Dr. Oquendo requested me to pm1 perform for patient post labs. 09/19 16:43 Order name: CBC with Diff; Complete Time: 17:34 pm1 09/19 16:43 Order name: CMP; Complete Time: 17:46 pm1 09/19 14:12 Order name: CT Pelvis wo Cont; Complete Time: 15:34 pm1 09/19 14:12 Order name: CT Lumbar Spine Wo Con; Complete Time: 15:34 pm1 09/19 14:12 Order name: Wrist Right 3 View XRAY; Complete Time: 15:56 pm1 09/19 14:12 Order name: Wrist Left (3 View) XRAY; Complete Time: 15:56 pm1 09/19 14:12 Order name: IV Saline Lock; Complete Time: 14:42 pm1 Administered Medications: 14:40 Drug: Zofran (Ondansetron) 4 mg Route: IVP; Site: right antecubital; ww 14:42 Drug: morphine 4 mg Route: IVP; Infused Over: 4 mins; Site: right antecubital; ww 16:05 Drug: NS 0.9% 500 ml Route: IV; Rate: bolus; Site: right antecubital; ww Disposition Summary: 09/19/21 17:23 Transfer Ordered Transfer Location: [facility] pm1 Reason: Higher level of care pm1 Condition: Stable pm1 Problem: new pm1 Symptoms: have improved pm1 Accepting Physician: Sindy Wynn Surgeon(09/19/21 18:20) ww Diagnosis - Comminuted right obturator ring fracture pm1 - Closed impacted distal metaphyseal right radius fracture pm1 - Closed impacted distal radius and ulnar fracture pm1 Forms: - Medication Reconciliation Form pm1 - SBAR form pm1 Signatures: Dispatcher [employer] Jolly NP QUALITY ASSURANCE MONITOR FINAL pm1 Sameera Gil RN RN ww Corrections: (The following items were deleted from the chart) 18:20 17:23 Sindy Wynn Surgeon pm1 ww
--- NOTE | 2021-09-19 17:24 | ER ---
Nurse's Notes [facility] Name: Karla Diaz Age: 81 yrs Sex: Female : 1940 Arrival Date: 09/19/2021 Time: 13:49 Bed 13 Private MD: Diagnosis: Comminuted right obturator ring fracture;Closed impacted distal metaphyseal right radius fracture;Closed impacted distal radius and ulnar fracture Presentation: 09/19 14:00 Chief complaint: Patient states: Walking dog and tripped over the dog and fell ww backwards landing on buttock and hands. Complaining of bilateral wrist pain, bilateral hip pain and buttock pain. Patient denies hitting her head or any LOC. Coronavirus screen: Client denies travel out of the [place] in the last 14 days. Ebola Screen: Patient denies travel to an Ebola-affected area in the 21 days before illness onset. Initial Sepsis Screen: Does the patient meet any 2 criteria? No. Patient's initial sepsis screen is negative. Does the patient have a suspected source of infection? No. Patient's initial sepsis screen is negative. Risk Assessment: Do you want to hurt yourself or someone else? Patient reports no desire to harm self or others. Onset of symptoms was September 19, 2021. 14:00 Method Of Arrival: EMS: [facility] ww 14:00 Acuity: GERA 3 ww Triage Assessment: 14:02 General: Appears in no apparent distress. Behavior is calm, cooperative. Pain: ww Complains of pain in pelvis, right arm, left arm, right leg and left leg. Neuro: Level of Consciousness is awake, alert, obeys commands, Oriented to person, place, time, situation, Speech is normal. Cardiovascular: Capillary refill Patient's skin is warm and dry. Chest pain is denied. Respiratory: Airway is patent Respiratory effort is even, unlabored, Respiratory pattern is. GI: No signs and/or symptoms were reported involving the gastrointestinal system. Derm: Skin is intact, is thin. Musculoskeletal: Swelling present in bilateral wrist. Historical: - Allergies: 14:02 PENICILLINS; ww - PMHx: 14:02 Hypertensive disorder; Arthritis; ww - PSHx: 14:02 Total abdominal hysterectomy; Tonsillectomy; ww - Immunization history:: Adult Immunizations up to date. - Social history:: Smoking status: Patient/guardian denies using tobacco, the patient reports quitting approximately 30 years ago. Screenin:04 Abuse screen: Denies threats or abuse. Denies injuries from another. Nutritional ww screening: No deficits noted. Tuberculosis screening: No symptoms or risk factors identified. Fall Risk Fall in past 12 months (25 points). No secondary diagnosis (0 pts). No IV (0 pts). Ambulatory Aid- None/Bed Rest/Nurse Assist (0 pts). Gait- Normal/Bed Rest/Wheelchair (0 pts) Mental Status- Oriented to own ability (0 pts). Total Amaya Fall Scale indicates Low Risk Score (25-44 pts). Fall prevention measures have been instituted. Side Rails Up X 2 Placed close to Nursing Station 1:1 attendant Assigned to Pt. Frequent Obs/Assesments occuring Family Present and informed to notify staff if they need to leave bedside As available Patient and Family Educated on Fall Prevention Program and strategies. Assessment: 14:04 Reassessment: Patient appears in no apparent distress at this time. No changes from ww previously documented assessment. Patient and/or family updated on plan of care and expected duration. Pain level reassessed. Patient is alert, oriented x 3, equal unlabored respirations, skin warm/dry/pink. see triage assessment. 16:30 Reassessment: Patient and/or family updated on plan of care and expected duration. Pain ww level reassessed. Patient is alert, oriented x 3, equal unlabored respirations, skin warm/dry/pink. Redd at bedside due to hypotension. Verbal order of NS 500ml IV bolus. 2L NC applied. Patient still complaining of pain with any movement. 17:10 Reassessment: Patient appears in no apparent distress at this time. Patient and/or ww family updated on plan of care and expected duration. Pain level reassessed. Patient is alert, oriented x 3, equal unlabored respirations, skin warm/dry/pink. 17:45 Reassessment: Report given MARCO ANTONIO Grant at [facility]. Patients ww grandson Nahid informed. Vital Signs: 14:00 BP 96 / 64; Pulse 73; Resp 18; Temp 97.0; Pulse Ox 93% on R/A; Weight 50.8 kg; Height 5 ww ft. 4 in. (162.56 cm); Pain 8/10; 14:30 BP 110 / 75; Pulse 72; Resp 18; Pulse Ox 93% on R/A; ww 15:55 BP 83 / 54; Pulse 66; Resp 18; Pulse Ox 96% on 3 lpm NC; ww 16:00 BP 97 / 65; Pulse 69; Resp 18; Pulse Ox 98% on 3 lpm NC; ww 16:30 BP 62 / 54; Pulse 70; Resp 18; Pulse Ox 94% on 3 lpm NC; ww 16:40 BP 120 / 62; Pulse 69; Resp 18; Pulse Ox 94% on 2 lpm NC; ww 17:12 BP 127 / 53; Pulse 69; Resp 16; Pulse Ox 94% on 1 lpm NC; ww 14:00 Body Mass Index 19.22 (50.80 kg, 162.56 cm) ww 16:40 changed blood pressure cuff to left arm. ww ED Course: 13:49 Patient arrived in ED. iw 14:00 Sameera Gil RN is Primary Nurse. ww 14:02 Redd Nina NP is PHCP. pm1 14:02 Darek Oquendo MD is Attending Physician. pm1 14:02 Triage completed. ww 14:04 Arm band placed on. ww 14:04 Patient has correct armband on for positive identification. Bed in low position. Call ww light in reach. Side rails up X2. Pulse ox on. NIBP on. Warm blanket given. 14:43 Inserted saline lock: 20 gauge in right antecubital area, using aseptic technique. ww 15:20 CT Pelvis wo Cont In Process Unspecified. EDMS 15:20 CT Lumbar Spine Wo Con In Process Unspecified. EDMS 15:27 Wrist Right 3 View XRAY In Process Unspecified. EDMS 15:27 Wrist Left (3 View) XRAY In Process Unspecified. EDMS 17:57 initiated transfer to [facility], pt accepted in transfer by dr altamirano admin approval bd given by scott diaz. 18:19 No provider procedures requiring assistance completed. Patient transferred, IV remains ww in place. Administered Medications: 14:40 Drug: Zofran (Ondansetron) 4 mg Route: IVP; Site: right antecubital; ww 14:42 Drug: morphine 4 mg Route: IVP; Infused Over: 4 mins; Site: right antecubital; ww 16:05 Drug: NS 0.9% 500 ml Route: IV; Rate: bolus; Site: right antecubital; ww Outcome: 17:23 ER care complete, transfer ordered by . pm1 18:19 Transferred by ground EMS to [facility], Transfer form completed. X-rays sent ww w/ patient. 18:19 Condition: stable 18:19 Instructed on the need for transfer. 18:20 Patient left the ED. ww Signatures: Dispatcher [employer] EDMS Danielle Chowdhury Irene, RN RN iw Redd Nina NP WATER PURIFICATION CHEMIST pm1 Sameera Gil RN RN ww
[2021-09-19 17:43] LABS: Albumin 3.4 g/dL (3.4-5.0); Bilirubin Total 0.9 mg/dL (0.2-1.0); Protein, Total 6.4 g/dL (6.4-8.2)
[2021-09-19 17:44] LABS: Potassium 4.1 mmol/L (3.5-5.1)
[2021-09-19 18:29] VITALS: TEMP 97
[2021-09-19 18:37] VITALS: O2SAT 94
[2021-09-19 18:40] VITALS: BP 127/53
== END 2021-09-19 18:20 | disposition short-term general hospital (02) ==
LOC: ER 13:43
DX: S32.811A Multiple fractures of pelvis with unstable disruption of pelvic ring, initial encounter for closed fracture (principal); S52.391A Other fracture of shaft of radius, right arm, initial encounter for closed fracture; S52.501A Unspecified fracture of the lower end of right radius, initial encounter for closed fracture; S52.601A Unspecified fracture of lower end of right ulna, initial encounter for closed fracture; I10 Essential (primary) hypertension; Z88.0 Allergy status to penicillin
CPT/HCPCS: 85025; 36415; 80053; 72131; 72192; 73110 ×2; J7030; J2405; 96374; 96375; 99285

== ENCOUNTER → 2023-06-20 | Emergency (ER) | payer OTHER, BC ==
[2023-06-20 10:09] LABS: Absolute Eosinophils 0.2 K/uL (0-0.5); Absolute Lymphocytes (CBC) 0.6 K/uL (0.7-4.9); Absolute Monocytes 0.3 K/uL (0.1-1.3); Absolute Neutrophil 4.4 K/uL (1.8-8.0); Basophils % 0.4 % (0-1.3); Eosinophils % 3.8 % (0-4.4); Hematocrit 37.9 % (36.0-45.0); Hemoglobin 12.9 g/dL (12.0-15.0); Lymphocytes % 10.3 % (15.3-44.8); MCH 32.2 pg (27.0-35.0); MCHC 33.9 g/dL (32.0-36.0); Monocytes % 5.6 % (3.3-12.3); Neutrophils % 79.9 % (41.7-73.7); Platelets 198 thou/uL (152-406); RBC Red Blood Cell Count 3.99 M/uL (3.86-4.86); Red Cell Distribution Width 12.5 % (12.1-15.2)
[2023-06-20 10:30] LABS: Albumin 3.1 g/dL (3.4-5.0); Albumin/Globulin Ratio 0.9 (1.1-1.8); Anion Gap 9.8 mEq/L (5.0-15.0); Bilirubin Direct 0.3 mg/dL (0-0.2); Bilirubin Indirect, Calculated 0.7 mg/dL (0.2-0.8); Globulin 3.3 g/dL (2.3-3.5); Potassium 3.8 mEq/L (3.5-5.1); Protein, Total 6.4 g/dL (6.4-8.2); Troponin High Sensitivity 5.9 pg/mL (<58.9)
--- NOTE | 2023-06-20 11:02 | RAD REPORT ---
EXAM DESCRIPTION: CT - Head Brain Wo Cont - 06/20/2023 10:08 am CLINICAL HISTORY: SYNCOPE COMPARISON: Brain Wo Cont dated 05/10/2023 TECHNIQUE: Noncontrast head CT images were obtained without IV contrast. Multiplanar reformats were generated and reviewed. All CT scans are performed using dose optimization technique as appropriate and may include automated exposure control or mA/KV adjustment according to patient size. FINDINGS: No intracranial hemorrhage, mass, or edema. Midline structures are unremarkable. Moderate diffuse parenchymal volume loss. Mild periventricular and deep white matter hypoattenuation, nonspecific, suggestive of chronic small vessel ischemic changes. Bailey-white matter differentiation is preserved, without evidence of acute infarct. No abnormal extra- axial fluid collections. Mastoid air cells and visualized portions of the paranasal sinuses are clear. No acute bony findings. Large degenerative pannus at the atlanto odontoid articulation. IMPRESSION: No evidence of an acute intracranial process. Chronic findings as above.
--- NOTE | 2023-06-20 11:03 | RAD REPORT ---
[facility]AM [facility] 10[facility]17 am CLINICAL HISTORY: syncope COMPARISON: CHEST SINGLE VIEW dated 01/19/2012; CHEST SINGLE VIEW dated 01/18/2012CHEST SINGLE VIEW dated 01/19/2012; CHEST SINGLE VIEW dated 01/18/2012 TECHNIQUE: Portable AP view of the chest. FINDINGS: The lungs are clear apart from chronic interstitial changes. No pneumothorax or effusion. The cardiomediastinal contours are unremarkable. IMPRESSION: No acute cardiopulmonary process.
--- NOTE | 2023-06-20 11:06 | ER ---
Nurse's Notes [facility] Name: Karla Light Age: 82 yrs Sex: Female : 1940 Arrival Date: 06/20/2023 Time: 09:38 Bed 17 Private MD: Diagnosis: Syncope Presentation: 06/19 09:37 Chief complaint: EMS states: From dementia unit. Low blood pressure. CO reports she was nj1 eating breakfast, passed out and vomited when she came back, did not fall. Pt co tiredness. 09:37 Coronavirus screen: At this time, the client does not indicate any symptoms associated nj1 with coronavirus-19. Ebola Screen: Patient denies travel to an Ebola-affected area in the 21 days before illness onset. Initial Sepsis Screen: Does the patient meet any 2 criteria? No. Patient's initial sepsis screen is negative. Does the patient have a suspected source of infection? No. Patient's initial sepsis screen is negative. Risk Assessment: Do you want to hurt yourself or someone else? Patient reports no desire to harm self or others. Onset of symptoms was June 20, 2023. 09:37 Method Of Arrival: EMS: [facility] 09:37 Acuity: GERA 3 nj1 10:05 Care prior to arrival: Medication(s) given: Normal saline infusion, Ok to continue EMS nj1 IVF. IV initiated. 20 GA, in the left antecubital area, Glucose check: 168. Historical: - Allergies: 09:52 PENICILLINS; nj1 09:52 morphine; nj1 09:52 ZOSTAVAX (PF); nj1 - PMHx: 09:52 Arthritis; Hypertensive disorder; Alzheimer's disease; Anemia; Chronic obstructive lung nj1 disease; Osteoporosis; Hypercholesterolemia; Hypertensive disorder; Gastroesophageal reflux disease; - PSHx: 09:52 Tonsillectomy; Total abdominal hysterectomy; nj1 - Immunization history:: Adult Immunizations unknown. - Social history:: Smoking status: unknown. Screenin:08 [facility] ED Fall Risk Assessment (Adult) History of falling in the last 3 months, nj1 including since admission No falls in past 3 months (0 pts) Confusion or Disorientation Yes (5 pts) Intoxicated or Sedated No (0 pts) Impaired Gait Yes (1 pt) Mobility Assist Device Used Yes (1 pt) Altered Elimination Yes (1 pt) Score/Fall Risk Level 3 or more points = High Risk Oriented to surroundings, Maintained a safe environment, Hourly rounding (assess needs \T\ fall precautionary measures) done, Used ambulatory aids as needed (educated on \T\ assisted with), Remained with patient while ambulating, Utilized family, sitter, or virtual wetlands conservation laborer as indicated. Abuse screen: Denies threats or abuse. Denies injuries from another. Nutritional screening: No deficits noted. Tuberculosis screening: No symptoms or risk factors identified. Assessment: 09:40 General: Appears in no apparent distress. comfortable, Behavior is calm, cooperative, nj appropriate for age. Pain: Denies pain. Neuro: Level of Consciousness is Sleepy. Oriented to person, place, Speech is normal, Facial symmetry appears normal. Cardiovascular: Patient's skin is warm and dry. Parent/caregiver reports patient has had syncope. Respiratory: Airway is patent Respiratory effort is even, unlabored. 10:47 Reassessment: Patient appears in no apparent distress at this time. No changes from [facility] previously documented assessment. 11:18 Reassessment: Patient appears in no apparent distress at this time. Patient states nj1 feeling better. Patient states symptoms have improved. Neuro: Level of Consciousness is awake, alert, obeys commands, Oriented to person, place. Vital Signs: 09:37 BP 90 / 69; Pulse 75; Resp 16; Temp 97.5(TE); Pulse Ox 94% on R/A; MAP 75 mmHg; Weight nj1 54 kg; Height 5 ft. 2 in. ; 10:00 BP 95 / 67; Pulse 86; Pulse Ox 95% ; MAP 74 mmHg; nj1 10:35 BP 85 / 62; Pulse 81; Resp 16; Pulse Ox 95% on R/A; MAP 68 mmHg; nj1 10:46 BP 93 / 64; Pulse 84; Resp 17; Pulse Ox 97% on R/A; MAP 69 mmHg; nj1 10:55 Temp 97.4(O); nj1 11:18 BP 120 / 67; Pulse 83; Resp 17; Pulse Ox 96% on R/A; nj1 11:37 BP 116 / 94; Pulse 81; Resp 16; Temp 98(TE); Pulse Ox 96% ; ok1 09:37 Body Mass Index 21.77 (54.00 kg, 157.48 cm) nj1 ED Course: 09:41 Patient arrived in ED. ld1 09:48 Genia Goodman, RN is Primary Nurse. nj1 09:52 Donna Parrish MD is Attending Physician. sp3 09:52 Triage completed. nj1 09:55 Arm band placed on left wrist. nj1 09:58 EKG done, by ED staff, reviewed by Donna Parrish MD. bc6 10:00 Maintain EMS IV. Dressing intact. Site clean \T\ dry. Gauge \T\ site: 20 L AC. IV is nj 1 patent, with fluids infusing freely, with good blood return. 10:08 Patient has correct armband on for positive identification. Bed in low position. Call nj1 light in reach. Side rails up X 1. Adult w/ patient. Provided Education on: call light, fall precautions. Client placed on continuous cardiac and pulse oximetry monitoring. NIBP monitoring applied. hall monitor on. 10:09 CT Head Brain wo Cont In Process Unspecified. EDMS 10:19 XRAY Chest (1 view) In Process Unspecified. EDMS 11:34 No provider procedures requiring assistance completed. IV discontinued, intact, nj1 bleeding controlled, Pressure dressing applied. Administered Medications: No medications were administered Medication: 11:36 VIS not applicable for this client. nj1 Outcome: 11:06 Discharge ordered by . sp3 11:35 Discharged to [facility]. Discharge instructions given to patients daughter who is nj1 taking patient [facility] to [facility]. 11:35 Condition: stable 11:35 Discharge instructions given to family, Instructed on discharge instructions, follow up and referral plans. Demonstrated understanding of instructions, follow-up care, 11:54 Patient left the ED. nj1 Signatures: Dispatcher [employer] EDMS Charis Fong, RN RN ld1 Donna Parrish MD MD sp3 Yvette Hull 6 Genia Goodman, RN RN nj1 Corrections: (The following items were deleted from the chart) 10:06 09:37 Chief complaint: EMS states: From dementia unit. Low blood pressure. CO reports nj1 she was eating breakfast, passed out and vomited when she came back, did not fall. Pt co tiredness. nj1 10:37 10:00 BP 95 / 67; Pulse 86bpm; Pulse Ox 95%; nj1 nj1 10:56 09:37 BP 90 / 69; Pulse 75bpm; Resp 16bpm; Pulse Ox 94% RA; MAP 75 mmHg; 54 kg; Height nj1 5 ft. 2 in.; BMI: 21.7; nj1
--- NOTE | 2023-06-20 11:06 | EDPHYS ---
Physician Documentation [facility] Name: Karla Light Age: 82 yrs Sex: Female : 1940 Arrival Date: 06/20/2023 Time: 09:38 Bed 17 Private MD: ED Physician Donna Parrish HPI: 06/19 10:21 This 82 yrs old Female presents to ER via EMS with complaints of syncope at nursing sp3 home. 10:21 82-year-old female with history of hypertension, Alzheimer's disease, COPD, arthritis sp3 who [facility] to a syncopal episode that she sustained while she was eating breakfast without significant fall or head injury. Patient remained "passed out" for several seconds after which she awoke and had 1 episode of emesis and return to her baseline. History, physical and review of systems severely limited secondary to dementia. EMS reports no reports to them of any other symptoms.. Historical: - Allergies: 09:52 PENICILLINS; nj1 09:52 morphine; nj1 09:52 ZOSTAVAX (PF); nj1 - PMHx: 09:52 Arthritis; Hypertensive disorder; Alzheimer's disease; Anemia; Chronic obstructive lung nj1 disease; Osteoporosis; Hypercholesterolemia; Hypertensive disorder; Gastroesophageal reflux disease; - PSHx: 09:52 Tonsillectomy; Total abdominal hysterectomy; nj1 - Immunization history:: Adult Immunizations unknown. - Social history:: Smoking status: unknown. ROS: 10:22 Unable to obtain ROS due to baseline dementia, sp3 Exam: 10:22 Constitutional: This is a well developed, well nourished patient who is awake, alert, sp3 and in no acute distress. Head/Face: Normocephalic, atraumatic. Eyes: Pupils equal round and reactive to light, extra-ocular motions intact. Lids and lashes normal. Conjunctiva and sclera are non-icteric and not injected. Cornea within normal limits. Periorbital areas with no swelling, redness, or edema. ENT: Nares patent. No nasal discharge, no septal abnormalities noted. External auditory canals are clear. Oropharynx with no redness, swelling, or masses, exudates, or evidence of obstruction, uvula midline. Mucous membranes moist. Neck: Trachea midline, no thyromegaly or masses palpated, and no cervical lymphadenopathy. Supple, full range of motion without nuchal rigidity, or vertebral point tenderness. No Meningismus. Chest/axilla: Normal chest wall appearance and motion. Nontender with no deformity. No lesions are appreciated. Cardiovascular: Regular rate and rhythm with a normal S1 and S2. No gallops, murmurs, or rubs. Normal PMI, no JVD. No pulse deficits. Respiratory: Lungs have equal breath sounds bilaterally, clear to auscultation and percussion. No rales, rhonchi or wheezes noted. No increased work of breathing, no retractions or nasal flaring. Abdomen/GI: Soft, non-tender, with normal bowel sounds. No distension or tympany. No guarding or rebound. No evidence of tenderness throughout. Back: No spinal tenderness. No costovertebral tenderness. Full range of motion. Skin: Warm, dry with normal turgor. Normal color with no rashes, no lesions, and no evidence of cellulitis. MS/ Extremity: Pulses equal, no cyanosis. Neurovascular intact. Full, normal range of motion. 10:22 ECG was reviewed by the Attending Physician. EKG demonstrates normal sinus rhythm at 74 bpm with normal intervals, normal QRS, normal axis, normal ST's ST changes without evidence of acute ischemia. Vital Signs: 09:37 BP 90 / 69; Pulse 75; Resp 16; Temp 97.5(TE); Pulse Ox 94% on R/A; MAP 75 mmHg; Weight nj1 54 kg; Height 5 ft. 2 in. ; 10:00 BP 95 / 67; Pulse 86; Pulse Ox 95% ; MAP 74 mmHg; nj1 10:35 BP 85 / 62; Pulse 81; Resp 16; Pulse Ox 95% on R/A; MAP 68 mmHg; nj1 10:46 BP 93 / 64; Pulse 84; Resp 17; Pulse Ox 97% on R/A; MAP 69 mmHg; nj1 10:55 Temp 97.4(O); nj1 11:18 BP 120 / 67; Pulse 83; Resp 17; Pulse Ox 96% on R/A; nj1 11:37 BP 116 / 94; Pulse 81; Resp 16; Temp 98(TE); Pulse Ox 96% ; nj1 09:37 Body Mass Index 21.77 (54.00 kg, 157.48 cm) nj1 MDM: 09:55 Patient medically screened. 3 10:23 Data reviewed: vital signs, nurses notes, lab test result(s), EKG, radiologic studies. 3 ED course: 82-year-old female with a history of syncope x 1 with 1 episode of emesis and dementia now at baseline after event at jail. Differential diagnosis includes intracranial pathology, CVA, ACS, electrolyte abnormality, syncope without cause, among others. I am not highly suspicious for sepsis or shock. Workup will include CT scan of the head, EKG, chest x-ray, laboratory values and general observation. Disposition pending workup and patient course.. 11:05 ED course: Workup negative and patient remains at baseline. We will safely discharge sp3 back to jail at this time.. 06/19 09:55 Order name: Basic Metabolic Panel; Complete Time: 10:52 06/19 09:55 Order name: CBC with Diff; Complete Time: 10:52 06/19 09:55 Order name: LFT's; Complete Time: 10:52 06/19 09:55 Order name: Magnesium; Complete Time: 10:52 06/19 09:55 Order name: NT PRO-BNP; Complete Time: 10:52 06/19 09:55 Order name: Troponin HS; Complete Time: 10:52 06/19 09:55 Order name: XRAY Chest (1 view); Complete Time: 11:05 06/19 09:55 Order name: CT Head Brain wo Cont; Complete Time: 11:05 06/19 09:55 Order name: EKG; Complete Time: 09:55 06/19 09:55 Order name: Cardiac monitoring; Complete Time: 10:04 06/19 09:55 Order name: EKG - Nurse/Tech; Complete Time: 09:58 06/19 09:55 Order name: IV Saline Lock; Complete Time: 10:04 06/19 09:55 Order name: Labs collected and sent; Complete Time: 10:04 06/19 09:55 Order name: O2 Per Protocol; Complete Time: 10:04 06/19 09:55 Order name: O2 Sat Monitoring; Complete Time: 10:04 06/19 10:53 Order name: Misc. Order: Please document temperature; Complete Time: 10:56 sp3 Administered Medications: No medications were administered Disposition Summary: 06/20/23 11:06 Discharge Ordered Notes: Location: Home sp3 Condition: Stable sp3 Diagnosis - Syncope sp3 Followup: sp3 - With: Private Physician - When: Upon discharge from the Emergency Department - Reason: Continuance of care Discharge Instructions: - Discharge Summary Sheet sp3 - Syncope sp3 Forms: - Medication Reconciliation Form sp3 - Thank You Letter sp3 - Antibiotic Education sp3 - Prescription Opioid Use sp3 - Patient Portal Instructions sp3 - Leadership Thank You Letter sp3 Signatures: Dispatcher [employer] Donna Robert MD MD sp3 Genia Goodman RN RN nj1
[2023-06-20 12:21] VITALS: BP 116/94; TEMP 98; O2SAT 96
--- NOTE | 2023-06-21 14:28 | EKG ---
Test Date: 2023-06-20 Test Time: 08:55:56 Caving Guide: GILMAR MEASUREMENT RESULTS: Intervals: Rate: 74 OR: 166 QRSD: 98 QT: 434 QTc: 481 [place]: P: 25 OR: 166 QRS: 7 T: 51 INTERPRETIVE STATEMENTS: Normal sinus rhythm Normal ECG No previous ECG available for comparison Electronically Signed On 06-21-23 14:23:48 CDT by Ernesto Morocho
== END ==
LOC: ER 09:38
DX: R55 Syncope and collapse (principal); G30.9 Alzheimer's disease, unspecified; F02.80 Dementia in other diseases classified elsewhere, unspecified severity, without behavioral disturbance, psychotic disturbance, mood disturbance, and anxiety; I10 Essential (primary) hypertension; Z88.0 Allergy status to penicillin; Z88.5 Allergy status to narcotic agent; Z88.8 Allergy status to other drugs, medicaments and biological substances
CPT/HCPCS: 36415; 70450; 71045; 80048; 80076; 83735; 83880; 84484; 85025; 93005

== ENCOUNTER 2024-01-31 19:58 | Emergency (ER) | payer OTHER, BC ==
[2024-01-31 20:58] LABS: Absolute Eosinophils 0.3 K/uL (0-0.5); Absolute Lymphocytes (CBC) 0.8 K/uL (0.7-4.9); Absolute Monocytes 0.8 K/uL (0.1-1.3); Absolute Neutrophil 8.3 K/uL (1.8-8.0); Basophils % 0.4 % (0-1.3); Eosinophils % 2.9 % (0-4.4); Lymphocytes % 7.6 % (15.3-44.8); MCH 31.8 pg (27.0-35.0); MCHC 34.2 g/dL (32.0-36.0); MCV 93.2 fL (80-100); MPV 7.9 fL (7.6-11.3); Monocytes % 8.2 % (3.3-12.3); Neutrophils % 80.9 % (41.7-73.7); Nucleated Red Blood Cells % 0.1 % (0-0); Platelets 231 thou/uL (152-406); RBC Red Blood Cell Count 4.08 M/uL (3.86-4.86); Red Cell Distribution Width 12.2 % (12.1-15.2)
[2024-01-31] MEDS ORDERED: CEFTRIAXONE 1000 MG/VIAL ONE (21:35)
[2024-01-31] MEDS ORDERED: NA CHLORIDE 0.9% 1,000 ML ONE (21:36)
[2024-01-31 21:42] LABS: Albumin 2.8 g/dL (3.4-5.0); Albumin/Globulin Ratio 0.7 (1.1-1.8); Anion Gap 7.8 mEq/L (5.0-15.0); Bilirubin Total 0.6 mg/dL (0.2-1.0); Globulin 3.8 g/dL (2.3-3.5); Protein, Total 6.6 g/dL (6.4-8.2)
[2024-01-31 21:59] LABS: Potassium 3.8 mEq/L (3.5-5.1)
--- NOTE | 2024-01-31 22:57 | ER ---
Nurse's Notes [facility] – [place], [place] Name: Karla Light Age: 83 yrs Sex: Female : 1940 Arrival Date: 01/31/2024 Time: 19:58 Bed 7 Private MD: Diagnosis: UTI/ Urinary tract infection, site not specified Presentation: 01/30 20:19 Chief complaint: Patient's son or daughter states: patient has been experiencing uti al5 symptoms, went to her doctors and had tests done with abnormal results. states she has not been treated for anything yet. Coronavirus screen: At this time, the client does not indicate any symptoms associated with coronavirus-19. Ebola Screen: No symptoms or risks identified at this time. Initial Sepsis Screen: Does the patient meet any 2 criteria? No. Patient's initial sepsis screen is negative. Does the patient have a suspected source of infection? No. Patient's initial sepsis screen is negative. Risk Assessment: Do you want to hurt yourself or someone else? Patient reports no desire to harm self or others. Onset of symptoms was January 20, 2024. 20:19 Method Of Arrival: Wheelchair al5 20:19 Acuity: GERA 3 al5 Triage Assessment: 20:24 General: Appears in no apparent distress. Behavior is calm, cooperative. EENT: No signs al5 and/or symptoms were reported regarding the EENT system. Neuro: Level of Consciousness is awake, alert, obeys commands, Oriented to baseline. Cardiovascular: Capillary refill < 3 seconds Patient's skin is warm and dry. Respiratory: Airway is patent Respiratory effort is even, unlabored, Respiratory pattern is regular, symmetrical. GI: No signs and/or symptoms were reported involving the gastrointestinal system. : Parent/caregiver report the patient having problems with urinating. Derm: Skin is intact, Skin is pink, warm \T\ dry. normal. Musculoskeletal: No signs and/or symptoms reported regarding the musculoskeletal system. Historical: - Allergies: 20:23 Morphine; al5 20:23 PENICILLINS; al5 20:23 ZOSTAVAX (PF); al5 - PMHx: 20:23 Alzheimer's disease; Anemia; Arthritis; Chronic obstructive lung disease; al5 Gastroesophageal reflux disease; Hypercholesterolemia; Hypertensive disorder; Hypertensive disorder; Osteoporosis; - PSHx: 20:23 Tonsillectomy; Total abdominal hysterectomy; al5 - Immunization history:: Adult Immunizations up to date. - Infectious Disease History:: Denies. - Social history:: Smoking status: Patient denies any tobacco usage or history of. - Family history:: not pertinent. Screenin:41 [facility] ED Fall Risk Assessment (Adult) History of falling in the last 3 months, al5 including since admission No falls in past 3 months (0 pts) Confusion or Disorientation No (0 pts) Intoxicated or Sedated No (0 pts) Impaired Gait Yes (1 pt) Mobility Assist Device Used Yes (1 pt) Altered Elimination No (0 pt) Score/Fall Risk Level 0 - 2 = Low Risk Oriented to surroundings, Maintained a safe environment, Hourly rounding (assess needs \T\ fall precautionary measures) done. 20:42 Abuse screen: Denies threats or abuse. Denies injuries from another. Nutritional al5 screening: No deficits noted. Tuberculosis screening: No symptoms or risk factors identified. Assessment: 20:41 Reassessment: see triage assessment. Pain: Denies pain. al5 22:40 Reassessment: Patient and/or family updated on plan of care and expected duration. Pain ha1 level reassessed. Cardiovascular: Patient's skin is warm and dry. Respiratory: Airway is patent Respiratory effort is even, unlabored, Respiratory pattern is regular, symmetrical. Vital Signs: 20:19 BP 179 / 73; Pulse 77; Resp 16; Temp 97.7; Pulse Ox 96% on R/A; Weight 48.08 kg; Height al5 5 ft. 2 in. ; 21:48 BP 147 / 80; Pulse 71; Resp 18 S; Pulse Ox 97% on R/A; ha1 22:30 BP 146 / 63; Pulse 76; Resp 16 S; Pulse Ox 99% on R/A; ha1 20:19 Body Mass Index 19.39 (48.08 kg, 157.48 cm) al5 ED Course: 20:04 Patient arrived in ED. jj6 20:04 Layton Eldridge MD is Attending Physician. rt 20:19 Kaylene Jiménez, MARCO ANTONIO is Primary Nurse. al5 20:23 Triage completed. al5 20:41 Arm band placed on right wrist. Patient placed in the treatment room, on a stretcher. al5 20:42 Patient has correct armband on for positive identification. Bed in low position. Call al5 light in reach. Side rails up X2. Adult w/ patient. Provided Education on: plan of care. 20:42 No provider procedures requiring assistance completed. al5 20:46 Inserted saline lock: 20 gauge in right forearm, using aseptic technique. Blood sa1 collected. Flushed with 10 mL NS. 21:00 CMP Sent. sa1 21:00 CBC with Diff Sent. sa1 23:15 IV discontinued, intact, bleeding controlled, No redness/swelling at site. Pressure ha1 dressing applied. Administered Medications: 21:48 Drug: NS 0.9% IV 1000 ml IV at 1 bolus Per protocol; to be given as a bolus over 60 ha1 minutes Route: IV; Rate: 1 bolus; Site: right forearm; 23:13 Follow up: Response: No adverse reaction; IV Status: Completed infusion; IV Intake: ha1 1000ml 21:48 Drug: Rocephin - Rocephin (cefTRIAXone) IVPB 2 grams IVPB once over 30 mins; (mix in ha1 100 mL NS) Route: IVPB; Infused Over: 30 mins; Site: right forearm; 22:05 Follow up: Response: No adverse reaction; IV Status: Completed infusion; IV Intake: ha1 100ml Medication: 20:41 VIS not applicable for this client. al5 Intake: 22:05 IV: 100ml; Total: 100ml. ha1 23:13 IV: 1000ml; Total: 1100ml. ha1 Outcome: 22:56 Discharge ordered by . rt 23:14 Discharged to home via wheelchair, with family, ha1 23:14 Condition: stable 23:14 Discharge instructions given to patient, family, Instructed on discharge instructions, follow up and referral plans. medication usage, Demonstrated understanding of instructions, follow-up care, medications, Prescriptions given X 1, 23:15 Patient left the ED. ha1 Signatures: Keke Austin6 Maureen Brown RN RN ha1 Layton Eldridge MD MD rt Kaylene Jiménez RN RN al5 Sultan Lior [facility]
--- NOTE | 2024-01-31 22:57 | EDPHYS ---
Physician Documentation [facility] Name: Karla Light Age: 83 yrs Sex: Female : 1940 Arrival Date: 01/31/2024 Time: 19:58 Bed 7 Private MD: ED Physician Layton Eldridge HPI: 01/30 20:49 This 83 yrs old Female presents to ER via Wheelchair with complaints of Abnormal Lab rt Results, Fever, Urinary Problem. 20:49 Patient presents to the ED with reported UTI. Patient had urinalysis collected over a rt week ago which revealed a UTI. Patient has not been placed on antibiotics. The patient reportedly has been more tired and weak compared to usual. This was initially attributed to the patient's medications which have been decreased. Denies other acute complaints, symptoms are mild in severity, no other aggravating or alleviating factors.. Historical: - Allergies: 20:23 Morphine; al5 20:23 PENICILLINS; al5 20:23 ZOSTAVAX (PF); al5 - PMHx: 20:23 Alzheimer's disease; Anemia; Arthritis; Chronic obstructive lung disease; al5 Gastroesophageal reflux disease; Hypercholesterolemia; Hypertensive disorder; Hypertensive disorder; Osteoporosis; - PSHx: 20:23 Tonsillectomy; Total abdominal hysterectomy; al5 - Immunization history:: Adult Immunizations up to date. - Infectious Disease History:: Denies. - Social history:: Smoking status: Patient denies any tobacco usage or history of. - Family history:: not pertinent. ROS: 20:49 Cardiovascular: Negative for chest pain, palpitations, and edema, Respiratory: Negative rt for shortness of breath, cough, wheezing, and pleuritic chest pain, Abdomen/GI: Negative for abdominal pain, nausea, vomiting, diarrhea, and constipation, MS/Extremity: Negative for injury and deformity, Skin: Negative for injury, rash, and discoloration, 20:49 Constitutional: Positive for fatigue, Negative for fever, Exam: 20:49 Constitutional: This is a well developed, well nourished patient who is awake, alert, rt and in no acute distress. Head/Face: Normocephalic, atraumatic. Chest/axilla: Normal chest wall appearance and motion. Nontender with no deformity. No lesions are appreciated. Cardiovascular: Regular rate and rhythm with a normal S1 and S2. No gallops, murmurs, or rubs. Normal PMI, no JVD. No pulse deficits. Respiratory: Lungs have equal breath sounds bilaterally, clear to auscultation and percussion. No rales, rhonchi or wheezes noted. No increased work of breathing, no retractions or nasal flaring. Abdomen/GI: Soft, non-tender, with normal bowel sounds. No distension or tympany. No guarding or rebound. No evidence of tenderness throughout. Skin: Warm, dry with normal turgor. Normal color with no rashes, no lesions, and no evidence of cellulitis. MS/ Extremity: Pulses equal, no cyanosis. Neurovascular intact. Full, normal range of motion. Vital Signs: 20:19 BP 179 / 73; Pulse 77; Resp 16; Temp 97.7; Pulse Ox 96% on R/A; Weight 48.08 kg; Height al5 5 ft. 2 in. ; 21:48 BP 147 / 80; Pulse 71; Resp 18 S; Pulse Ox 97% on R/A; ha1 22:30 BP 146 / 63; Pulse 76; Resp 16 S; Pulse Ox 99% on R/A; ha1 20:19 Body Mass Index 19.39 (48.08 kg, 157.48 cm) al5 MDM: 20:19 Medical Screening Exam initiated rt 23:10 Differential diagnosis: UTI, electrolyte disturbance. Data reviewed: vital signs, rt nurses notes, lab test result(s). I considered the following discharge prescriptions or medication management in the emergency department Medications were administered in the Emergency Department. See MAR. Test considered but Not performed: CT: No abdominal tenderness, CT scan is not indicated. Care significantly affected by the following chronic conditions: Chronic Obstructive Pulmonary Disease. Counseling: I had a detailed discussion with the patient and/or guardian regarding the historical points, exam findings, and any diagnostic results supporting the discharge/admit diagnosis, lab results, the need for outpatient follow up. Response to treatment: the patient's symptoms have mildly improved after treatment. 23:12 Historians other than the Patient: Daughter/Son: Discussed history. External Records rt Reviewed: Outpatient labs: Reviewed previous urinalysis as well as urine culture which showed a pansensitive E. coli. 01/30 20:26 Order name: CBC with Diff; Complete Time: 21:21 rt 01/30 20:26 Order name: CMP; Complete Time: 22:03 rt Administered Medications: 21:48 Drug: NS 0.9% IV 1000 ml IV at 1 bolus Per protocol; to be given as a bolus over 60 ha1 minutes Route: IV; Rate: 1 bolus; Site: right forearm; 23:13 Follow up: Response: No adverse reaction; IV Status: Completed infusion; IV Intake: ha1 1000ml 21:48 Drug: Rocephin - Rocephin (cefTRIAXone) IVPB 2 grams IVPB once over 30 mins; (mix in ha1 100 mL NS) Route: IVPB; Infused Over: 30 mins; Site: right forearm; 22:05 Follow up: Response: No adverse reaction; IV Status: Completed infusion; IV Intake: ha1 100ml Disposition Summary: 01/31/24 22:56 Discharge Ordered Notes: Location: Home rt Problem: new rt Symptoms: are unchanged rt Condition: Stable rt Diagnosis - UTI/ Urinary tract infection, site not specified rt Followup: rt - With: Private Physician - When: 2 - 3 days - Reason: Discharge Instructions: - Discharge Summary Sheet rt - Urinary Tract Infection, Adult rt Forms: - Medication Reconciliation Form rt - Antibiotic Education rt - Prescription Opioid Use rt - Patient Portal Instructions rt - Leadership Thank You Letter rt Prescriptions: - cefpodoxime 200 mg Oral tablet - take 1 tablet ORAL route every 12 hours with food; 14 tablet; Refills: 0, rt Product Selection Permitted Signatures: Dispatcher [employer] Maureen Veras RN RN ha1 Layton Eldridge MD MD rt Kaylene Jiménez RN RN al5
[2024-01-31 23:50] VITALS: TEMP 97.7
[2024-02-01 00:10] VITALS: BP 146/63; O2SAT 99
== END 2024-01-31 23:15 | disposition home or self-care (01) ==
LOC: ER 19:58
DX: N39.0 Urinary tract infection, site not specified (principal); I10 Essential (primary) hypertension; J44.9 Chronic obstructive pulmonary disease, unspecified; G30.9 Alzheimer's disease, unspecified; F02.80 Dementia in other diseases classified elsewhere, unspecified severity, without behavioral disturbance, psychotic disturbance, mood disturbance, and anxiety
CPT/HCPCS: 96365; 96361; 85025; 36415; 80053; 99284; J7030; J0696

== ENCOUNTER 2024-04-11 16:29 | Inpatient (IN) | payer OTHER, BC ==
[2024-04-11] MEDS: CEFTRIAXONE 1,000 MG in NA CHLORIDE 0.9% 50 ML IVPB SCH (09:00)
--- NOTE | 2024-04-11 18:07 | RAD REPORT ---
EXAM: CT Head Brain Wo Cont HISTORY: AMS COMPARISON: 06/20/2023 TECHNIQUE: Multiple contiguous axial images were obtained for a CT of the brain without contrast. Sag ittal and coronal reformats were performed. One or more of the following dose reduction techniques were used: Automated exposure control, adjus tment of the mA and kV according to patient size, and iterative reconstruction. Unless otherwise specified, incidental findings do not require dedicated imaging follow-up. FINDINGS: No evidence of hydrocephalus, intracranial hemorrhage, or extra-axial fluid collection. Moderate brain atrophy with moderate periventricular and deep white matter chronic microvascular isc hemic changes present. The calvarium is intact. The visualized paranasal sinuses and mastoid air cells are essentially clear . IMPRESSION: No evidence of acute intracranial abnormality. Stable chronic findings as above.
--- NOTE | 2024-04-11 18:12 | RAD REPORT ---
EXAMINATION: ONE VIEW CHEST XR CLINICAL INDICATION: Female, 83 years old., generalized weakness TECHNIQUE: Frontal chest projection is submitted. Examination is limited by patient positioning and t echnique. COMPARISON: 06/20/2023 FINDINGS: The lungs are diffusely emphysematous. Small focal peripheral right basilar opacity, new since the pr ior exam. No pneumothorax or sizable effusion. The heart is normal in size. Mediastinal contours are unremarkable. IMPRESSION: Small right basilar focal opacity, diffuse new, may represent new focus of pneumonitis, atelectasis, or scarring.
[2024-04-11 18:19] LABS: Hematocrit 42.1 % (36.0-45.0); MCH 31.4 pg (27.0-35.0); MPV 8.6 fL (7.6-11.3)
[2024-04-11 18:22] LABS: Absolute Eosinophils 0.3 K/uL (0-0.5); Absolute Lymphocytes (CBC) 0.8 K/uL (0.7-4.9); Absolute Monocytes 0.6 K/uL (0.1-1.3); Absolute Neutrophil 4.5 K/uL (1.8-8.0); Basophils % 0.4 % (0-1.3); Eosinophils % 4.6 % (0-4.4); Lymphocytes % 13.5 % (15.3-44.8); MCHC 33.2 g/dL (32.0-36.0); MCV 94.5 fL (80-100); Monocytes % 9.9 % (3.3-12.3); Neutrophils % 71.6 % (41.7-73.7); Nucleated Red Blood Cells % 0.1 % (0-0); Platelets 216 thou/uL (152-406); RBC Red Blood Cell Count 4.45 M/uL (3.86-4.86); Red Cell Distribution Width 13.4 % (12.1-15.2)
[2024-04-11 18:26] LABS: Anion Gap 10.7 mEq/L (5.0-15.0); Magnesium 2.1 mg/dL (1.6-2.4); Potassium 4.7 mEq/L (3.5-5.1); Troponin High Sensitivity 5.6 pg/mL (<58.9)
[2024-04-11 18:31] LABS: Specific Gravity 1.015 (1.005-1.030); Urine Bilirubin NEGATIVE (Negative); Urine Blood Negative (Negative); Urine Clarity Clear (Clear); Urine Color Light-Yellow (Yellow); Urine Glucose NEGATIVE (Negative); Urine Ketones NEGATIVE (Negative); Urine Microscopic Reflex YN NO UMIC; Urine Nitrite NEGATIVE (Negative); Urine Protein NEGATIVE (Negative); Urine Urobilinogen Normal (Normal); Urine pH 5.5 (5.0-7.0)
--- NOTE | 2024-04-11 19:04 | ER ---
Nurse's Notes [facility] Name: Karla Light Age: 83 yrs Sex: Female : 1940 Arrival Date: 04/11/2024 Time: 16:29 Bed 14 Private MD: Diagnosis: Muscle weakness (generalized);Essential (primary) hypertension;Pneumonitis Presentation: 04/11 16:56 Chief complaint: Parent and/or Guardian states: lives at [facility], when I went to 6 visit her yesterday, her voice was softer and she seemed confused. She is being treated for a UTI. Today they called and said she is weak and they were concerned about her BP. She is still confused today. 16:56 Method Of Arrival: Wheelchair tm6 17:47 Coronavirus screen: Client denies travel out of the [place] in the last 14 days. Ebola tm6 Screen: Patient negative for fever greater than or equal to 101.5 degrees Fahrenheit, and additional compatible Ebola Virus Disease symptoms Patient denies exposure to infectious person. Patient denies travel to an Ebola-affected area in the 21 days before illness onset. No symptoms or risks identified at this time. Initial Sepsis Screen: Does the patient meet any 2 criteria? No. Patient's initial sepsis screen is negative. Does the patient have a suspected source of infection? No. Patient's initial sepsis screen is negative. Risk Assessment: Do you want to hurt yourself or someone else? Patient reports no desire to harm self or others. Onset of symptoms was April 10, 2024. 17:47 Acuity: GERA 3 tm6 Triage Assessment: 17:47 General: Appears in no apparent distress. Behavior is calm, cooperative. Pain: Denies tm6 pain. Neuro: Level of Consciousness is awake, alert, obeys commands, Oriented to person, baseline dementia, but daughter reports further confusion. Reports. Historical: - Allergies: 16:58 Morphine; tm6 16:58 PENICILLINS; tm6 16:58 ZOSTAVAX (PF); tm6 - PMHx: 16:58 Alzheimer's disease; Anemia; Arthritis; Chronic obstructive lung disease; tm6 Gastroesophageal reflux disease; Hypercholesterolemia; Hypertensive disorder; Osteoporosis; - PSHx: 16:58 Tonsillectomy; Total abdominal hysterectomy; tm6 - Immunization history:: Flu vaccine status is unknown. - Infectious Disease History:: Denies. - Social history:: Smoking status: Patient denies any tobacco usage or history of. Screenin:30 [facility] ED Fall Risk Assessment (Adult) History of falling in the last 3 months, aa5 including since admission Confusion or Disorientation Yes (5 pts) Intoxicated or Sedated Impaired Gait Yes (1 pt) Mobility Assist Device Used Yes (1 pt) Altered Elimination Yes (1 pt) Score/Fall Risk Level 3 or more points = High Risk Oriented to surroundings, Maintained a safe environment, Educated pt \T\ family on fall prevention, incl call for assistance when getting out of bed. Abuse screen: No signs of abuse noted. Nutritional screening: No deficits noted. Tuberculosis screening: No symptoms or risk factors identified. Assessment: 17:30 General: Appears comfortable, Behavior is calm, cooperative. Pain: Denies pain. Neuro: aa5 Level of Consciousness is awake, alert, obeys commands, Oriented to person, place. Cardiovascular: Heart tones S1 S2 present Rhythm is regular. Respiratory: Airway is patent Respiratory effort is even, unlabored, relaxed, Respiratory pattern is regular, symmetrical. GI: Abdomen is round non-distended, Abd is soft and non tender X 4 quads. : brief noted. EENT: No signs and/or symptoms were reported regarding the EENT system. Derm: Skin is pink, warm \T\ dry. Musculoskeletal: Range of motion: intact in all extremities. 18:30 Reassessment: Pt resting in bed with eyes closed, respirations are even and relaxed. aa5 Pt's daughter remains at bedside. . 19:00 Reassessment: Patient appears in no apparent distress at this time. Patient and/or kj2 family updated on plan of care and expected duration. Pain level reassessed. Patient is alert, oriented x 3, equal unlabored respirations, skin warm/dry/pink. 19:28 Reassessment: Patient appears in no apparent distress at this time. Patient and/or kj2 family updated on plan of care and expected duration. Pain level reassessed. Patient is alert, oriented x 3, equal unlabored respirations, skin warm/dry/pink. 20:30 Reassessment: Patient appears in no apparent distress at this time. Patient and/or kj2 family updated on plan of care and expected duration. Pain level reassessed. Patient is alert, oriented x 3, equal unlabored respirations, skin warm/dry/pink. 21:30 Reassessment: Patient appears in no apparent distress at this time. Patient and/or kj2 family updated on plan of care and expected duration. Pain level reassessed. Patient is alert, oriented x 3, equal unlabored respirations, skin warm/dry/pink. Vital Signs: 16:58 Weight 49.9 kg; Height 5 ft. 2 in. ; tm6 17:09 BP 192 / 91; Pulse 73; Resp 19; Temp 98.2(O); Pulse Ox 99% on R/A; MAP 119 mmHg; Pain aa5 0/10; 17:30 BP 195 / 73; Pulse 74; Resp 18 S; Pulse Ox 97% on R/A; aa5 18:10 BP 189 / 86; Pulse 72; Resp 14 S; Pulse Ox 97% on R/A; aa5 19:00 BP 186 / 84; Pulse 76; Resp 18; Pulse Ox 100% on R/A; kj2 21:39 BP 152 / 135; Pulse 71; Resp 18; Pulse Ox 100% ; kj2 23:10 BP 156 / 88; Pulse 84; Resp 19; Pulse Ox 96% on R/A; kj2 16:58 Body Mass Index 20.12 (49.90 kg, 157.48 cm) tm6 17:09 Pain Scale: Adult aa5 ED Course: 16:31 Patient arrived in ED. ra3 16:43 Gio Fong DO is Attending Physician. ms3 16:59 Arm band placed on left wrist. tm6 17:27 CT Head Brain wo Cont In Process Unspecified. EDMS 17:27 Cate Morelos, RN is Primary Nurse. aa5 17:30 Patient has correct armband on for positive identification. Placed in gown. Bed in low aa5 position. Call light in reach. Side rails up X2. Adult w/ patient. Client placed on continuous cardiac and pulse oximetry monitoring. NIBP monitoring applied. playground monitor on. Pulse ox on. NIBP on. 17:37 XRAY Chest (1 view) In Process Unspecified. EDMS 17:47 Triage completed. tm6 17:55 Missed attempt(s): 22 gauge in right antecubital area. Bleeding controlled, band aid aa5 applied, catheter tip intact. 18:00 Inserted saline lock: 22 gauge in right wrist, using aseptic technique. Flushed with 10 aa5 mL NS. 18:15 EKG done, by ED staff, reviewed by Gio Fong DO. aa5 18:25 Urine collected: straight cath specimen, clear, sent to lab. aa5 19:03 Sean Perez MD is Hospitalizing Provider. ms3 19:12 Report given to MARCO ANTONIO Humphreys. aa5 23:58 No provider procedures requiring assistance completed. Patient admitted, IV remains in kj2 place. 23:59 Provided Education on: need for admit. kj2 Administered Medications: No medications were administered Medication: 19:13 VIS not applicable for this client. aa5 Outcome: 19:04 Decision to Hospitalize by Provider. ms3 23:58 Admitted to Tele accompanied by [facility], room 405, kj2 23:58 Condition: stable 23:58 Instructed on the need for admit, 04/12 00:01 Patient left the ED. kj2 Signatures: Dispatcher [employer] EDMS Cate Morelos, RN RN aa5 iGo Fong DO DO ms3 Ceci Gibson, RN RN 6 Melissa Delgadillo ra3 Juliann Alexander, RN RN kj2
--- NOTE | 2024-04-11 19:04 | EDPHYS ---
Physician Documentation [facility] Name: Karla Light Age: 83 yrs Sex: Female : 1940 Arrival Date: 04/11/2024 Time: 16:29 Bed 14 Private MD: ED Physician Gio Fong HPI: 04/11 17:53 This 83 yrs old Female presents to ER via Wheelchair with complaints of Weakness. ms3 17:53 Karla Light is an 83-year-old female presenting to the emergency department with ms3 weakness. She has been treated for a urinary tract infection for the last week. There has been a noticeable change in her mental status, as she appeared more confused and her speech was garbled yesterday. She was also quieter than usual. Normally, she is able to move around using a walker, but today she required a wheelchair for mobility to and from the lunch area.. Historical: - Allergies: 16:58 Morphine; tm6 16:58 PENICILLINS; tm6 16:58 ZOSTAVAX (PF); tm6 - PMHx: 16:58 Alzheimer's disease; Anemia; Arthritis; Chronic obstructive lung disease; tm6 Gastroesophageal reflux disease; Hypercholesterolemia; Hypertensive disorder; Osteoporosis; - PSHx: 16:58 Tonsillectomy; Total abdominal hysterectomy; tm6 - Immunization history:: Flu vaccine status is unknown. - Infectious Disease History:: Denies. - Social history:: Smoking status: Patient denies any tobacco usage or history of. ROS: 17:53 Cardiovascular: Negative for chest pain, and palpitations. Respiratory: Negative for ms3 shortness of breath, cough, wheezing, and pleuritic chest pain, Abdomen/GI: Negative for abdominal pain, nausea, vomiting, diarrhea, and constipation, 17:53 Constitutional: Positive for Generalized weakness, ms3 Exam: 17:53 Constitutional: This is a well developed, well nourished patient who is awake, alert, ms3 and in no acute distress. Chest/axilla: Normal chest wall appearance and motion. Nontender with no deformity. Cardiovascular: Regular rate and rhythm with a normal S1 and S2. No gallops, murmurs, or rubs. Normal PMI, no JVD. No pulse deficits. Respiratory: Lungs have equal breath sounds bilaterally, clear to auscultation and percussion. No rales, rhonchi or wheezes noted. No increased work of breathing, no retractions or nasal flaring. Abdomen/GI: Soft, non-tender, with normal bowel sounds. No distension or tympany. No guarding or rebound. No evidence of tenderness throughout. Skin: Warm, dry with normal turgor. Normal color with no rashes, no lesions, and no evidence of cellulitis. MS/ Extremity: Pulses equal, no cyanosis. Neurovascular intact. Full, normal range of motion. 19:11 ECG was reviewed by the Attending Physician. ms3 Vital Signs: 16:58 Weight 49.9 kg; Height 5 ft. 2 in. ; tm6 17:09 BP 192 / 91; Pulse 73; Resp 19; Temp 98.2(O); Pulse Ox 99% on R/A; MAP 119 mmHg; Pain aa5 0/10; 17:30 BP 195 / 73; Pulse 74; Resp 18 S; Pulse Ox 97% on R/A; aa5 18:10 BP 189 / 86; Pulse 72; Resp 14 S; Pulse Ox 97% on R/A; aa5 19:00 BP 186 / 84; Pulse 76; Resp 18; Pulse Ox 100% on R/A; kj2 21:39 BP 152 / 135; Pulse 71; Resp 18; Pulse Ox 100% ; kj2 23:10 BP 156 / 88; Pulse 84; Resp 19; Pulse Ox 96% on R/A; kj2 16:58 Body Mass Index 20.12 (49.90 kg, 157.48 cm) tm6 17:09 Pain Scale: Adult aa5 MDM: 17:12 Medical Screening Exam initiated ms3 20:32 Data reviewed: vital signs, nurses notes, lab test result(s), EKG, radiologic studies, ms3 and as a result, I will admit patient. Consideration of Admission/Observation Patient was admitted/placed on observation. Management of patient was discussed with the following: Hospitalist: Dr. Munoz. Independent interpretation of the following test(s) in the Emergency Department EKG: See my EKG interpretation above. Counseling: I had a detailed discussion with the patient and/or guardian regarding the historical points, exam findings, and any diagnostic results supporting the discharge/admit diagnosis, lab results, radiology results, the need for further work-up and treatment in the hospital. ED course: Discussed necessity for admission with patient and her daughter. They understand and agree with plan. All questions were answered.. 04/11 16:44 Order name: Basic Metabolic Panel; Complete Time: 18:34 ms3 04/11 16:44 Order name: CBC with Diff; Complete Time: 18:34 ms3 04/11 16:44 Order name: Magnesium; Complete Time: 18:34 ms3 04/11 16:44 Order name: Troponin HS; Complete Time: 18:34 ms3 04/11 16:44 Order name: Urinalysis w/ reflexes; Complete Time: 18:34 ms3 04/11 19:25 Order name: CBC with Automated Diff EDMS 04/11 19:25 Order name: CBC with Automated Diff EDMS 04/11 19:25 Order name: Comprehensive Metabolic Panel EDMS 04/11 19:25 Order name: Comprehensive Metabolic Panel EDMS 04/11 19:27 Order name: Thyroid Stimulating Hormone EDMS 04/11 16:44 Order name: XRAY Chest (1 view); Complete Time: 18:34 ms3 04/11 17:11 Order name: CT Head Brain wo Cont; Complete Time: 18:34 ms3 04/11 19:27 Order name: Chest Single View EDMS 04/11 19:27 Order name: Chest Single View EDID 04/11 19:27 Order name: Physical Therapy Consult EDID 04/11 16:44 Order name: Cardiac monitoring; Complete Time: 18:01 ms3 04/11 16:44 Order name: EKG - Nurse/Tech; Complete Time: 18:25 ms3 04/11 16:44 Order name: IV Saline Lock; Complete Time: 18:01 ms3 04/11 16:44 Order name: Labs collected and sent; Complete Time: 18:01 ms3 04/11 16:44 Order name: O2 Per Protocol; Complete Time: 17:47 ms3 04/11 16:44 Order name: O2 Sat Monitoring; Complete Time: 17:47 ms3 04/11 18:26 Order name: Straight Cath - Urine; Complete Time: 18:26 aa5 EC:11 Rate is 74 beats/min. Rhythm is regular. QRS Moore is Normal. NH interval is normal. QRS ms3 interval is normal. Clinical impression: NSR w/ Non-specific ST/T Changes. Interpreted by me. Reviewed by me. Administered Medications: No medications were administered Disposition Summary: 04/11/24 19:04 Hospitalization Ordered Notes: Hospitalization Status: Observation ms3 Provider: Sean Perez ms3 Location: Telemetry/MedSurg (observation) ms3 Condition: Stable ms3 Problem: new ms3 Symptoms: are unchanged ms3 Bed/Room Type: Standard ms3 Room Assignment: 405(04/11/24 22:48) vc1 Diagnosis - Muscle weakness (generalized) ms3 - Essential (primary) hypertension ms3 - Pneumonitis ms3 Forms: - Medication Reconciliation Form ms3 - SBAR form ms3 - Leadership Thank You Letter ms3 Signatures: Dispatcher [employer] EDMS Vee Stark RN RN Cate Gamez RN RN aa5 Gio Fong DO DO ms3 Tabitha Solano RN RN vc1 Ceci Gibson RN RN tm6 Corrections: (The following items were deleted from the chart) 16:44 16:44 Chest Single View+RAD.RAD.BRZ ordered. EDMS EDMS 16:44 16:44 Urinalysis+U.LAB.BRZ ordered. EDMS EDMS 17:54 17:53 Constitutional: Negative for fever, and chills. Cardiovascular: Negative for ms3 chest pain, and palpitations. Respiratory: Negative for shortness of breath, cough, wheezing, and pleuritic chest pain, Abdomen/GI: Negative for abdominal pain, nausea, vomiting, diarrhea, and constipation, ms3 17:55 17:53 Constitutional: This is a well developed, well nourished patient who is awake, ms3 alert, and in no acute distress. Chest/axilla: Normal chest wall appearance and motion. Nontender with no deformity. Cardiovascular: Regular rate and rhythm with a normal S1 and S2. No gallops, murmurs, or rubs. Normal PMI, no JVD. No pulse deficits. Respiratory: Lungs have equal breath sounds bilaterally, clear to auscultation and percussion. No rales, rhonchi or wheezes noted. No increased work of breathing, no retractions or nasal flaring. Abdomen/GI: Soft, non-tender, with normal bowel sounds. No distension or tympany. No guarding or rebound. No evidence of tenderness throughout. Skin: Warm, dry with normal turgor. Normal color with no rashes, no lesions, and no evidence of cellulitis. MS/ Extremity: Pulses equal, no cyanosis. Neurovascular intact. Full, normal range of motion. ms3 22:25 19:04 ms3 kl 22:48 22:25 403 kl vc1
[2024-04-11] MEDS: AMLODIPINE 5 MG TAB PO SCH (19:24)
[2024-04-11] MEDS: NA CHLORIDE 0.9% 1,000 ML IV SCH (20:00)
--- NOTE | 2024-04-11 20:42 | P.HP ---
Certification for Inpatient Patient admitted to: Observation With expected LOS: <2 Midnights Practitioner: I am a practitioner with admitting privileges, knowledge of patient current condition, hospital course, and medical plan of care. Services: Services provided to patient in accordance with Admission requirements found in Title 42 Section 412.3 of the Code of Federal Regulations Patient History Date of Service: 04/11/24 Reason for admission: Weakness. Speech History of Present Illness: Patient is 83 years of age and care home resident with a history of COPD daughter present at the bedside been sick for a week or so daughter noticed that her voice has become weaker to walk reducing a wheelchair blood pressure was high this was garbled it for a UTI a week ago admitted to the hospital although she has a history of COPD quit 2/2 decades ago does not use any bronchodilators has a history of dementia chest x-ray possible right lower lobe infiltrate abnormal renal function Allergies Penicillins Allergy (Severe, Verified 01/18/12 16:48) Shortness of breath Home Medications: Calcium Carb/Vit D3/Minerals [Caltrate-600 with Vit D Tab] 1 each PO DAILY 01/18/12 Fluticasone/Salmeterol [Advair 100/50 Diskus*] 1 puff IH DAILY 01/18/12 Gabapentin 300 mg PO BEDTIME 01/18/12 Ipratrop/Albuterol Inhaler [Combivent*] 2 puff IH PRN PRN 01/18/12 Meloxicam 15 mg PO DAILY 01/18/12 Nifedipine [Nifedipine ER] 30 mg PO DAILY 01/18/12 Omeprazole 20 mg PO DAILY 01/18/12 atenoloL [Tenormin*] 50 mg PO DAILY 01/18/12 calcium polycarbophiL [Fibercon*] 625 mg PO DAILY 01/18/12 Prednisone 20 mg PO BID #0 tablet 01/19/12 Sulfamethoxazole/Trimethoprim [Bactrim Ds Tablet] 1 each PO BID #0 tablet 01/19/12 Tiotropium Allen [Spiriva] 1 spray IH DAILY #0 cap.w.dev 01/20/12 - Past Medical/Surgical History Diabetic: No -: copd -: Hypertension -: Dementia -: GERD -: Hysterectomy - Social History Smoking Status: Former smoker Alcohol use: Yes CD- Drugs: No Caffeine use: Yes Review of Systems 10-point ROS is otherwise unremarkable General: Weakness Physical Examination - Vital Signs Temperature: 98.2 F Blood Pressure: 192/91 Pulse: 73 Respirations: 14 Pulse Ox (%): 99 - Physical Exam General: Alert, Oriented x2 HEENT: Atraumatic Neck: Supple Respiratory: Clear to auscultation bilaterally Cardiovascular: No edema, Regular rate/rhythm Gastrointestinal: Normal bowel sounds, Soft and benign Musculoskeletal: No clubbing, No swelling Integumentary: No rashes, No breakdown Neurological: Abnormal speech - Studies Laboratory Data (last 24 hrs) 04/11/24 04/11/24 18:00 18:00 WBC 6.30 Hgb 14.0 Hct 42.1 Plt Count 216 Sodium 135 L Potassium 4.7 BUN 34 H Creatinine 1.57 H Glucose 107 H Magnesium 2.1 Assessment and Plan - Problems (Diagnosis) (1) Pneumonia Current Visit: Yes Status: Acute Plan: Is 83 years of age care home resident with a history of dementia COPD with progressive weakness speech very high blood pressure history of COPD not sure if she takes any inhalers daughter present at the bedside labs possible right lower lobe infiltrate CT is negative urinalysis is negative white count normal renal function is little elevated plan to admit treat with IV antibiotics bronchodilators IV fluids monitor sickle therapy patient is apparently was was functional at baseline Daughter informs me that patient does not want to be resuscitated no CPR or intubation Qualifiers: Pneumonia type: due to unspecified organism Laterality: right Lung location: lower lobe of lung Qualified Code(s): J18.9 - Pneumonia, unspecified organism (2) Hypertension Current Visit: Yes Status: Acute Plan: His blood pressure is elevated resume medications she takes amlodipine at home Qualifiers: Hypertension type: primary hypertension Qualified Code(s): I10 - Essential (primary) hypertension (3) COPD (chronic obstructive pulmonary disease) Current Visit: Yes Status: Acute Plan: History of COPD former smoker quit over 2 decades ago sure if she is compliant with her inhalers will start on some bronchodilator - Advance Directives Does patient have a Living Will: No Does patient have a Durable POA for Healthcare: No
[2024-04-11] MEDS ORDERED: AMLODIPINE 5 MG TAB ONE (21:20)
[2024-04-11] MEDS ORDERED: NA CHLORIDE 0.9% 1,000 ML ONE (21:20)
[2024-04-12] MEDS: HYDRALAZINE HCL 20 MG/ML VIAL IV PRN (00:16)
[2024-04-12 00:31] VITALS: BMI 20.9
[2024-04-12 00:35] VITALS: O2SAT 98
[2024-04-12] MEDS: ACETAMINOPHEN 325 MG TABLET PO PRN (01:06)
[2024-04-12] MEDS: IPRATROPIUM BROM 0.5MG/2.5ML NEB SCH (01:07)
[2024-04-12 07:16] LABS: Absolute Eosinophils 0.1 K/uL (0-0.5); Absolute Lymphocytes (CBC) 0.8 K/uL (0.7-4.9); Absolute Monocytes 0.7 K/uL (0.1-1.3); Absolute Neutrophil 5.5 K/uL (1.8-8.0); Basophils % 0.4 % (0-1.3); Eosinophils % 1.9 % (0-4.4); Hematocrit 38.3 % (36.0-45.0); Hemoglobin 12.7 g/dL (12.0-15.0); MCH 31.5 pg (27.0-35.0); MCHC 33.3 g/dL (32.0-36.0); MCV 94.6 fL (80-100); MPV 8.3 fL (7.6-11.3); Monocytes % 9.1 % (3.3-12.3); Neutrophils % 77.6 % (41.7-73.7); Platelets 227 thou/uL (152-406); RBC Red Blood Cell Count 4.05 M/uL (3.86-4.86); Red Cell Distribution Width 12.7 % (12.1-15.2)
[2024-04-12 07:41] LABS: Albumin 3.2 g/dL (3.4-5.0); Anion Gap 11.7 mEq/L (5.0-15.0); Globulin 3.2 g/dL (2.3-3.5); Potassium 4.7 mEq/L (3.5-5.1); Protein, Total 6.4 g/dL (6.4-8.2); Thyroid Stimulating Hormone 2.06 uIU/mL (0.358-3.740)
[2024-04-12] MEDS: CEFTRIAXONE 1,000 MG in NA CHLORIDE 0.9% 50 ML IVPB SCH (07:57)
--- NOTE | 2024-04-12 08:56 | RAD REPORT ---
EXAMINATION: ONE VIEW CHEST XR CLINICAL INDICATION: Female, 83 years old.,poss pneumonia TECHNIQUE: Frontal chest projection is submitted. Examination is limited by patient positioning and t echnique. COMPARISON: 04/11/2024 FINDINGS: The lungs are hypoinflated. Improved peripheral right basilar opacity. Background emphysematous pillai es again seen. No pneumothorax or sizable effusion. The heart is normal in size. Mediastinal contours are unchanged. IMPRESSION: No acute intrathoracic abnormalities.
[2024-04-12] MEDS ORDERED: INFLUENZA VACCINE (for 6+ mo) 0.5 ML DOSE IMVAC ONE (11:00)
[2024-04-12] MEDS ORDERED: PNEUMOCOCCAL VACCINE 0.5 ML IMVAC ONE (11:00)
--- NOTE | 2024-04-12 18:15 | P.DS ---
Admission Date: 04/11/24 Discharge Date: 04/12/24 Disposition: TRANSFER TO [facility] Discharge Condition: GOOD Reason for Admission: Weakness. Speech Brief History of Present Illness: Diagnosis Right Lower lobe Pneumonia, unspecified Hypertension Chronic obstructive pulmonary disease RL HPI 04/11/2024 Patient is 83 years of age and [facility] resident with a history of COPD daughter present at the bedside been sick for a week or so daughter noticed that her voice has become weaker to walk reducing a wheelchair blood pressure was high this was garbled it for a UTI a week ago admitted to the hospital although she has a history of COPD quit 2/2 decades ago does not use any bronchodilators has a history of dementia chest x-ray possible right lower lobe infiltrate abnormal renal function Hospital Course: Karla tolerated antibiotic treatment for Right lower lobe pneumonia. She will need to continue the antibiotic course at discharge. Her blood pressure was elevated but responded well to Norvasc. Creatinine responded to IVF. She has remained on room air, was able to walk without distress and tolerating PO diet. On 04/12/2024, Karla was seen on morning rounds and deemed medically stable for [facility] to the [facility]. Karla was discharged with instructions to schedule follow-up appointments with PCP. Karla was provided prescriptions for Norvasc and azithromycin. Physical Exam General: Alert, Oriented x2, NAD HEENT: Atraumatic, MMM Neck: Supple Respiratory: Clear to auscultation bilaterally Cardiovascular: No edema, RRR, S1 S2 present Gastrointestinal: Normal active bowel sounds, Soft on palpation Musculoskeletal: No clubbing, No swelling Integumentary: No rashes, No breakdown Neurological: Abnormal speech Vital Signs/Physical Exam: Temp Pulse Resp BP Pulse Ox 98.7 F 91 H 16 149/63 H 94 04/12/24 16:00 04/12/24 16:00 04/12/24 16:00 04/12/24 16:00 04/12/24 16:00 Laboratory Data at Discharge: WBC 7.10 thou/uL (4.3-10.9) 04/12/24 07:06 Hgb 12.7 g/dL (12.0-15.0) D 04/12/24 07:06 Hct 38.3 % (36.0-45.0) 04/12/24 07:06 Plt Count 227 thou/uL (152-406) 04/12/24 07:06 Sodium 138 mEq/L (136-145) 04/12/24 07:06 Potassium 4.7 mEq/L (3.5-5.1) 04/12/24 07:06 BUN 29 mg/dL (7-18) H 04/12/24 07:06 Creatinine 1.45 mg/dL (0.55-1.02) H 04/12/24 07:06 Glucose 99 mg/dL (74-106) 04/12/24 07:06 Magnesium 2.1 mg/dL (1.6-2.4) 04/11/24 18:00 Total Bilirubin 1.0 mg/dL (0.2-1.0) 04/12/24 07:06 AST 20 U/L (15-37) 04/12/24 07:06 ALT 21 U/L (13-56) 04/12/24 07:06 Alkaline Phosphatase 77 U/L (45-117) 04/12/24 07:06 Home Medications: Meloxicam 15 mg PO DAILY 01/18/12 Alendronate Sodium 70 mg PO EVERY 7TH DAY 04/12/24 Amlodipine Besylate [Norvasc] 5 mg PO DAILY 30 Days #30 tab 04/12/24 Amlodipine [Norvasc*] 2.5 mg PO DAILY 04/12/24 Atorvastatin Calcium [Lipitor*] 10 mg PO BEDTIME 04/12/24 Azithromycin Tab [Zithromax*] 250 mg PO ZPAK #1 avel 04/12/24 Donepezil [Aricept*] 5 mg PO BEDTIME 04/12/24 Memantine HCl [Namenda*] 15 mg PO BID 04/12/24 Quetiapine [Seroquel*] 25 mg PO BID 04/12/24 New Medications: Amlodipine Besylate [Norvasc] 5 mg PO DAILY 30 Days #30 tab Azithromycin Tab [Zithromax*] 250 mg PO ZPAK #1 avel Physician Discharge Instructions: Karla will complete antibiotic treatment for pneumonia. She has remained on room air and was able to walk without distress. 1. Please call and schedule a follow-up appointment with your PCP in 3-5 days - Please follow-up with your PCP for medication refills/adjustments -Started Norvasc for elevated blood pressure 2. Continue regular diet 3. activity restrictions, fall precautions 4. Return to the ED if symptoms worsen New medications Dania Prescott Diet: Regular Activity: Fall precautions Followup: Rachel Vale MD [Primary Care Provider] -
--- NOTE | 2024-04-14 10:50 | EKG ---
Test Date: 2024-04-11 Test Time: 18:09:19 [employer]: SHAHAB MEASUREMENT RESULTS: Intervals: Rate: 74 [place]: 162 QRSD: 102 QT: 400 QTc: 444 [place]: P: 4 [place]: 162 QRS: 8 T: 26 INTERPRETIVE STATEMENTS: Normal sinus rhythm ST abnormality, possible digitalis effect Abnormal ECG Compared to ECG 06/20/2023 08:55:56 ST (T wave) deviation now present Electronically Signed On 04-14-24 10:49:47 [employer] by Roldan Hensley
[2024-04-15 15:07] VITALS: BP 149/63
[2024-04-15 15:14] VITALS: TEMP 98.7
== END 2024-04-12 18:36 | DRG 194 ==
LOC: ER 16:29 → ERHOLD 19:21 → 4TH 23:24
PROVIDERS: ADMIT Internal Medicine Sleep Medicine; ATTEND Internal Medicine
DX: J18.9 Pneumonia, unspecified organism (principal); J44.0 Chronic obstructive pulmonary disease with (acute) lower respiratory infection; N17.9 Acute kidney failure, unspecified; E78.00 Pure hypercholesterolemia, unspecified; I10 Essential (primary) hypertension; M81.0 Age-related osteoporosis without current pathological fracture; K21.9 Gastro-esophageal reflux disease without esophagitis; G30.9 Alzheimer's disease, unspecified; F02.80 Dementia in other diseases classified elsewhere, unspecified severity, without behavioral disturbance, psychotic disturbance, mood disturbance, and anxiety; Z88.0 Allergy status to penicillin; Z88.5 Allergy status to narcotic agent; Z88.8 Allergy status to other drugs, medicaments and biological substances; Z87.891 Personal history of nicotine dependence; Z90.710 Acquired absence of both cervix and uterus; Z79.899 Other long term (current) drug therapy
CPT/HCPCS: 36415; 70450; 71045; 80048; 80053; 81003; 83735; 84443; 84484; 85025; 93005; 94640; 97116; 97161; 97530; 99285; J0360; J0696; J7030; J7644